=== PATIENT | female | born 1960 | race Caucasian/White ===

== ENCOUNTER 2023-01-23 17:51 | Outpatient (CLI) | payer MEDICARE | END 2023-01-23 17:52 | disposition critical access hospital (66) | LOC: EMS 17:51 | DX: R06.02 Shortness of breath (principal); R05.9 Cough, unspecified; R09.3 Abnormal sputum; R53.83 Other fatigue; R61 Generalized hyperhidrosis; Z99.81 Dependence on supplemental oxygen | CPT/HCPCS: A0425; A0427 ==

== ENCOUNTER 2023-01-23 18:07 | Inpatient (IN) | payer MEDICARE ==
[2023-01-23] MEDS ORDERED: IPRATROPIUM/ALBUTEROL 3 ML NEB INH STA (18:21)
--- NOTE | 2023-01-23 18:25 | ED Physician Documentation ---
History of Present Illness - Stated complaint Stated Complaint: SOA - Chief complaint Chief Complaint: Resp - Additonal information Additional information: 62-year-old female presents to the emergency department for evaluation of worsening shortness of air and cough that began about 4 to 5 days ago. She is traveling here from [place]. She states that at baseline, due to a history of pulmonary hypertension, she is on 2 L nasal cannula at rest. Typically uses 4 to 5 L at night with her CPAP machine. She states that she has had a productive cough and has been very wheezy. Her oxygen saturations have been lower than she is typically used to typically in the mid 80s over the last several days. Past medical history most significant for pulmonary hypertension, hypertension, fibromyalgia, chemotherapy-induced neuropathy, arthritis, prediabetes, sleep apnea, history of non-Hodgkin's lymphoma in remission for 14 years. Also had a history of a left kidney tumor status post partial nephrectomy. She does take sildenafil, diltiazem, amlodipine, furosemide daily. She denies missing any of her typical doses. Reports she had a fever 3 days ago. Up to 103. In route to the emergency department EMS gave 125 mg of Solu-Medrol IV as well as a DuoNeb. Review of Systems Constitutional: reports: Fever Respiratory: reports: Dyspnea, Wheezing. denies: Cough, Hemoptysis GI: reports: Reviewed and negative : reports: Reviewed and negative Skin: reports: Reviewed and negative Musculoskeletal: reports: Reviewed and negative Neurologic: reports: Reviewed and negative PD PAST MEDICAL HISTORY - Present Medications Home Medications: Ambulatory Orders Medication Instructions Recorded Confirmed Alprazolam [Xanax] 0.5 mg PO DAILY PRN 01/23/23 01/23/23 Atorvastatin Calcium 40 mg PO DAILY 01/23/23 01/23/23 Citalopram Hydrobromide 40 mg PO DAILY 01/23/23 01/23/23 [Citalopram HBr] DULoxetine [Cymbalta] 30 mg PO DAILY 01/23/23 01/23/[address] [Voltaren] 75 mg PO BIDWM 01/23/23 01/23/23 Furosemide [Lasix] 20 mg PO PRN PRN 01/23/23 01/23/23 Gabapentin [Neurontin] 600 mg PO UD 01/23/23 01/23/23 Sildenafil Citrate [Sildenafil] 20 mg PO TID 01/23/23 01/23/23 Valsartan/Hydrochlorothiazide 1 each PO DAILY 01/23/23 01/23/23 [Diovan Hct 320-25 mg Tablet] amLODIPine [Norvasc] 5 mg PO DAILY 01/23/23 01/23/23 dilTIAZem HCL [Diltiazem 24Hr ER 180 mg PO DAILY 01/23/23 01/23/23 (Xr)] tiZANidine [Zanaflex] 4 mg PO BID PRN 01/23/23 01/23/23 - Allergies Allergies/Adverse Reactions: Allergies Allergy/AdvReac Type Severity Reaction Status Date / Time promethazine [From Phenergan] Allergy Emesis Verified 01/23/23 18:14 PD ED PE NORMAL - General General: Alert and oriented X 3, Well developed/nourished (Obese) - Neck Neck: Supple, no meningeal sign - Cardiac Cardiac: RRR, Strong equal pulses. No: No murmur (3/6 systolic murmur) - Respiratory Respiratory: No: No respiratory distress (Mild tachypnea. Frequent productive cough. Reduced breath sounds globally though she does have some expiratory wheeze in the lower lung richter posteriorly. Saturating 88% on 4 L) - Abdomen Abdomen: Normal bowel sounds, Soft - Back Back: No CVA TTP, No spinal TTP - Derm Derm: Normal color, Warm and dry - Extremities Extremities: No deformity - Neuro Neuro: Alert and oriented X 3, lead radiologic technologist 2-12 intact Eye Opening: Spontaneous Motor: Obeys Commands Verbal: Oriented GCS Score: 15 Results - Vitals Vitals: Vital Signs - 24 hr 01/23/23 01/23/23 01/23/23 18:15 18:26 18:27 Temperature 36.5 C Heart Rate 86 82 95 Respiratory 16 26 H 21 Rate Blood Pressure 134/56 H 134/56 H O2 Saturation 88 L 91 L If not protocol 4 5 : Oxygen Flow, liters/minute 01/23/23 01/23/23 19:15 19:35 Temperature Heart Rate 76 81 Respiratory 24 30 H Rate Blood Pressure 123/49 L O2 Saturation 95 If not protocol 5 5 : Oxygen Flow, liters/minute Oxygen O2 Source Nasal cannula Oxygen Flow Rate 4 - EKG (time done) 1856 EKG releavant findings:: EKG personally interpreted by author of this note. Relevant findings are: Rate: Rate (enter#) (80) Rhythm: NSR [place]: Normal Intervals: Normal HI, Prolonged QT QRS: Normal Ischemia: Non specific changes Compare to prior EKG: Old EKG unavailable Computer interpretation: Agree with computer - Labs Labs: Laboratory Tests 01/23/23 01/23/23 01/23/23 18:28 18:28 18:28 WBC 8.0 RBC 3.50 L Hgb 11.0 L Hct 35.5 L MCV 101.4 H MCH 31.4 H MCHC 31.0 L RDW 13.2 Plt Count 90 L MPV 13.7 H Neut # (Auto) 5.0 Lymph # (Auto) 1.8 [place] # (Auto) 0.7 Eos # (Auto) 0.0 Baso # (Auto) 0.0 Absolute Nucleated RBC 0.02 Band Neuts % (Manual) Not Reportable Abnorm Lymph % (Manual) Not Reportable Nucleated RBC % 0.3 Neutrophils # (Manual) Not Reportable Lymphocytes # (Manual) Not Reportable Monocytes # (Manual) Not Reportable Eosinophils # (Manual) Not Reportable Basophils # (Manual) Not Reportable Differential Comment MANUAL=AUTO DIFF Manual Slide Review Indicated Platelet Estimate DECREASED (<130,000) Platelet Morphology NORMAL APPEARANCE RBC Morph Micro Appear NORMAL APPEARANCE PT 11.6 INR 1.0 Sodium 133 L Potassium 2.6 L Chloride 94 L Carbon Dioxide 24 Anion Gap 15.0 H BUN 54 H Creatinine 2.2 H Estimated GFR (MDRD) 23 L Glucose 181 H Calcium 8.4 L Total Bilirubin 0.9 AST 19 ALT 27 Alkaline Phosphatase 143 H B-Natriuretic Peptide Total Protein 7.3 Albumin 3.7 Globulin 3.6 Albumin/Globulin Ratio 1.0 Lipase 36 Nasal Adenovirus (PCR) Nasal B. parapertussis DNA (PCR) Nasal Coronavir 229E PCR Nasal Coronavir HKU1 PCR Nasal Coronavir NL63 PCR Nasal Coronavir OC43 PCR Nasal Enterovir/Rhinovir PCR Nasal Influenza B PCR Nasal Influenza A PCR Nasal Parainfluen 1 PCR Nasal Parainfluen 2 PCR Nasal Parainfluen 3 PCR Nasal Parainfluen 4 PCR Nasal RSV (PCR) Nasal B.pertussis DNA PCR Nasal C.pneumoniae (PCR) [place] Human Metapneumo PCR Nasal M.pneumoniae (PCR) Nasal SARS-CoV-2 (PCR) 01/23/23 01/23/23 18:28 19:05 WBC RBC Hgb Hct MCV MCH MCHC RDW Plt Count MPV Neut # (Auto) Lymph # (Auto) [place] # (Auto) Eos # (Auto) Baso # (Auto) Absolute Nucleated RBC Band Neuts % (Manual) Abnorm Lymph % (Manual) Nucleated RBC % Neutrophils # (Manual) Lymphocytes # (Manual) Monocytes # (Manual) Eosinophils # (Manual) Basophils # (Manual) Differential Comment Manual Slide Review Platelet Estimate Platelet Morphology RBC Morph Micro Appear PT INR Sodium Potassium Chloride Carbon Dioxide Anion Gap BUN Creatinine Estimated GFR (MDRD) Glucose Calcium Total Bilirubin AST ALT Alkaline Phosphatase B-Natriuretic Peptide 115 H Total Protein Albumin Globulin Albumin/Globulin Ratio Lipase Nasal Adenovirus (PCR) NOT DETECTED Nasal B. parapertussis DNA (PCR) NOT DETECTED Nasal Coronavir 229E PCR NOT DETECTED Nasal Coronavir HKU1 PCR NOT DETECTED Nasal Coronavir NL63 PCR NOT DETECTED Nasal Coronavir OC43 PCR NOT DETECTED Nasal Enterovir/Rhinovir PCR DETECTED A Nasal Influenza B PCR NOT DETECTED Nasal Influenza A PCR NOT DETECTED Nasal Parainfluen 1 PCR NOT DETECTED Nasal Parainfluen 2 PCR NOT DETECTED Nasal Parainfluen 3 PCR NOT DETECTED Nasal Parainfluen 4 PCR NOT DETECTED Nasal RSV (PCR) NOT DETECTED Nasal B.pertussis DNA PCR NOT DETECTED Nasal C.pneumoniae (PCR) NOT DETECTED [place] Human Metapneumo PCR NOT DETECTED Nasal M.pneumoniae (PCR) NOT DETECTED Nasal SARS-CoV-2 (PCR) NOT DETECTED - Rads (name of study) cxr Relevant Findings:: Final report received (Findings compatible with moderate to severe fluid overload CHF. Multifocal infection is difficult to exclude) PD Medical Decision Making - ED course Complexity details: reviewed results, re-evaluated patient, considered differential, d/w patient ED course: 62-year-old female presents emergency department for evaluation of 4 to 5 days increasing shortness of air. She does have a history of pulmonary hypertension. She also is on baseline 2 to 4 L oxygen at home. Typically she states her sats are 90-92 but over the last several days despite using oxygen at 4 L she has desaturated down into the mid 80s. She is also developed a productive cough and had a fever up to 103. Patient is traveling to [facility] from [place]. She also has a medical history that includes hypertension, history of left renal tumor status post partial nephrectomy and non-Hodgkin's lymphoma in remission for 14 years. On presentation to the emergency department the patient is tachypneic and constantly coughing. She is saturating 88 to 90% on 4 L. Initially she had very decreased airflow globally but did have diffuse crackles in the bases. She was administered a DuoNeb followed by an albuterol nebulizer and with this she had improved aeration and though she remained labored had improved breathing. I did obtain a chest x-ray and per my interpretation it shows diffused focal pulmonary infiltrates with volume overload. Initially suspecting some volume overload the patient was administered 40 mg of Lasix IV here in the ER. CBC shows no worrisome leukocytosis. She does have a mild anemia. Her electrolytes however are significantly deranged. She is hyponatremic, hypokalemic and has findings of acute kidney injury with an elevated BUN and creatinine of 2.2. I am able to look at the patient's labs obtained in October 2022 (on her phone) that shows normal renal function with a BUN of 17 and creatinine 0.7. Patient reports to me that she has had very little to eat or drink over the last several days due to the cough and shortness of air. I believe that her kidney injury is likely prerenal. Respiratory PCR has resulted positive for enterovirus/rhinovirus today. Blood cultures are pending. However clinically the patient has a hypoxic respiratory failure that I believe is due to a pneumonia. She was administered ceftriaxone and azithromycin here in the emergency department following the blood cultures. She will need to be admitted to the hospital for further management of acute kidney injury in the setting of pulmonary hypertension and pneumonia. I spoke with telehealth hospitalist Dr. Bruno who agrees to bring the patient in for further evaluation management and treatment. Departure - Departure Disposition: 66 [facility] DC/Xfer Clinical Impression: Acute kidney injury, History of pulmonary hypertension Pneumonia Qualifiers: Pneumonia type: due to unspecified organism Laterality: bilateral Lung location: lower lobe of lung Qualified Code(s): J18.9 - Pneumonia, unspecified organism
[2023-01-23] MEDS ORDERED: FUROSEMIDE 40 MG/4 ML VIAL IVP STA (18:27)
[2023-01-23 18:35] LABS: BASOPHILS % (AUTO) 0.4 %; HCT - HEMATOCRIT 35.5 % (37.0-47.0); LYMPHOCYTES # (AUTO) 1.8 10^3/uL (1.5-3.5); LYMPHOCYTES % (AUTO) 21.9 %; MEAN CORPUSCULAR HEMOGLOBIN 31.4 pg (27.0-31.0); MEAN CORPUSCULAR VOLUME 101.4 fL (81.0-99.0); MEAN PLATELET VOLUME 13.7 fL (7.9-10.8); MONOCYTES # (AUTO) 0.7 10^3/uL (0.0-1.0); MONOCYTES % (AUTO) 8.4 %; NEUTROPHILS % (AUTO) 62.3 %; NRBC ABSOLUTE COUNT (AUTO) 0.02 x10^3/uL; NUCLEATED RED BLOOD CELLS AUTO 0.3 /100WBC; PLT - PLATELET COUNT 90 10^3/uL (130-450); RED CELL DISTRIBUTION WIDTH 13.2 % (12.0-15.0)
[2023-01-23 18:40] LABS: SLIDE REVIEW? Indicated
[2023-01-23 18:41] LABS: PT - PROTHROMBIN TIME 11.6 secs (9.9-12.6)
[2023-01-23 18:48] LABS: ALBUMIN 3.7 g/dL (3.2-5.5); BILIRUBIN,TOTAL 0.9 mg/dL (0.2-1.0); CALCIUM 8.4 mg/dL (8.5-10.3); CREATININE 2.2 mg/dL (0.4-1.0); POTASSIUM 2.6 mmol/L (3.5-5.0); TOTAL PROTEIN 7.3 g/dL (6.7-8.2)
[2023-01-23 18:56] LABS: DIFFERENTIAL COMMENT MANUAL=AUTO DIFF; PLATELET ESTIMATE, MANUAL DECREASED (<130,000) (NORMAL); PLATELET MORPHOLOGY NORMAL APPEARANCE (NORMAL); RBC MORPHOLOGY (MULTIPLE) NORMAL APPEARANCE (NORMAL)
[2023-01-23] MEDS ORDERED: ALBUTEROL NEB 2.5 MG/3 ML INH STA (19:03)
[2023-01-23] MEDS ORDERED: cefTRIAXone 1 GM VIAL IVP STA (19:07)
[2023-01-23] MEDS ORDERED: AZITHROMYCIN INJ 500 MG in SODIUM CHLORIDE 0.9% 250 ML IV STA (19:08)
--- NOTE | 2023-01-23 19:38 | XRAY Report ---
PROCEDURE: Chest 1 View X-Ray INDICATIONS: Chest Pain TECHNIQUE: One view of the chest was acquired. COMPARISON: None. FINDINGS: Surgical changes and devices: None. Lungs and pleura: Interstitial opacities and patchy bibasilar opacities are present. No large pleura l effusion or pneumothorax identified Mediastinum: Cardiac silhouette is enlarged. Pulmonary vasculature appears congested. Bones and chest wall: No suspicious bony lesions. Overlying soft tissues appear unremarkable. IMPRESSION: Findings compatible with moderate-severe fluid overload/CHF. Multifocal infection is difficult to exc lude. Reviewed by: Champ Zhang MD on 01/23/2023 7:37 PM PDT Approved by: Champ Zhang MD on 01/23/2023 7:37 PM PDT Station ID: [id number]
--- NOTE | 2023-01-23 19:41 | HISTORY & PHYSICAL EXAMINATION ---
Chief Complaint - Chief Complaint Chief Complaint: Shortness of breath, cough History of Present Illness - Admitted From Admitted From:: ER - History Obtained From Records Reviewed: Yes History obtained from: Patient, staff, chart Exam Limitations: H&P was conducted via video remotely, using Access Cart. - History of Present Illness HPI Comment/Other: 62 yo F with PMH of Pulmonary HTN on Sildenafil and home O2 3L NC (recent dx), MANISHA on CPAP with 4L O2, HTN, Fibromyalgia, chemotherapy-induced neuropathy s/p NHL/in remission x 14 years, Prediabetes, Depression/Anxiety, Recent HZV outbreak, s/p TKR in 10/2022, and L kidney tumor S/P partial nephrectomy presented to the ER with c/o 5 day h/o Shortness of breath and cough. Pt traveled to [place] from [place] 10 days ago to help her daughter with her 3 yo grandson while her daughter's is deployed in reserves. Pt's grandson had URI symptoms last week; he was diagnosed with HMPV. Pt has been sleeping with her grandson. She began to have similar symptoms 5 days ago with cough, fatigue, mylagias. +Decreased PO intake. She then began to F/C with Tmax 103.3F. +sputum: green/brown. She then began to have wheezing and increased Shortness of breath. Her SpO2 are usually low 90s, and her SpO2 were running in the mid-80s. She tried her nebs. She increased her home O2 to 4L NC. She thought something was wrong with her portable O2 d/t SOB and called the level vial setter to trouble-shoot it, but could not find anything wrong. She increased her CPAP O2 to 5L. She then went to the Urgent Care clinic yesterday; Provider recommended that she go to the ER. Her symptoms worsened today, so she called EMS. She is supposed to return to [place] in about 4 days. EMS gave pt 125 mg of Solu-Medrol IV and DuoNebs. In the ER, SpO2 88-90% on 4L NC O2, Hgb 11, MCV 101.4, Plt 90, Na 133, K 2.6, Glc 181, BNP 115, BC pending, Resp panel pending. CXR not yet available for viewing; report not available: shows RLL infiltrate per ER Provider Pt was given Lasix 40mg IV, Rocephin/Azithro IV in the ER. History - Past Medical History Cardiovascular: reports: Hypertension Respiratory: reports: Other Psych: reports: Depression, Anxiety Musculoskeletal: reports: Other - Past Surgical History Ortho: reports: Knee replacement /HR CLERK: reports: section - Family & Social History Family History: Other family: Alive and Well (Daughter) Living arrangement: At home - Substance History Use: Uses substance without health or social issues: NONE Meds/Allgy - Home Medications Home Medications: Ambulatory Orders Medication Instructions Recorded Confirmed Alprazolam [Xanax] 0.5 mg PO DAILY PRN 01/23/23 01/23/23 Atorvastatin Calcium 40 mg PO DAILY 01/23/23 01/23/23 Citalopram Hydrobromide 40 mg PO DAILY 01/23/23 01/23/23 [Citalopram HBr] DULoxetine [Cymbalta] 30 mg PO DAILY 01/23/23 01/23/[address] [Voltaren] 75 mg PO BIDWM 01/23/23 01/23/23 Furosemide [Lasix] 20 mg PO PRN PRN 01/23/23 01/23/23 Gabapentin [Neurontin] 600 mg PO UD 01/23/23 01/23/23 Macitentan [Opsumit] 10 mg PO DAILY 01/23/23 01/23/23 Sildenafil Citrate [Sildenafil] 20 mg PO TID 01/23/23 01/23/23 Valsartan/Hydrochlorothiazide 1 each PO DAILY 01/23/23 01/23/23 [Diovan Hct 320-25 mg Tablet] amLODIPine [Norvasc] 5 mg PO DAILY 01/23/23 01/23/23 dilTIAZem HCL [Diltiazem 24Hr ER 180 mg PO DAILY 01/23/23 01/23/23 (Xr)] tiZANidine [Zanaflex] 4 mg PO BID PRN 01/23/23 01/23/23 - Allergies Allergies/Adverse Reactions: Allergies Allergy/AdvReac Type Severity Reaction Status Date / Time promethazine [From Phenergan] Allergy Emesis Verified 01/23/23 18:14 Review of Systems - All Other Systems All Other Systems: reports: Reviewed and negative Exam - Vital Signs Reviewed Vital Signs: Yes Vital Signs: Vital Signs x48h Temp Pulse Resp BP Pulse Ox O2 Flow Rate 04/18/23 19:15 76 24 5 01/23/23 18:27 95 21 5 01/23/23 18:26 82 26 H 134/56 H 91 L 4 01/23/23 18:15 36.5 C 86 16 134/56 H 88 L - Physical Exam General Appearance: positive: Mild distress Eyes Bilateral: positive: Normal inspection, PERRL, No scleral icterus Respiratory: positive: Other (Access cart stethoscope not working; per ER Provider: Decreased BS, +diffuse wheezing throughout) Cardiovascular: positive: Other ( Access cart stethoscope not working; per ER Provider: RRR, no murmurs) Abdomen: positive: Other (per ER Provider: non-distended, NT, Soft) Extremities: positive: No pedal edema Neurologic/Psychiatric: positive: Oriented x3, Other (NFD) Conclusion/Plan - Problem List (1) Pneumonia Conclusion/Plan: Acute on Chronic Respiratory Failure with Hypoxia Pneumonia Recent exposure to URI virus (HPMV) Pulmonary HTN on Sildenafil and home O2 3L NC (recent dx) MANISHA on CPAP with 4L O2 Cough Shortness of Breath Fever Wheezing -EMS gave pt 125 mg of Solu-Medrol IV and DuoNebs. -SpO2 88-90% on 4L NC O2, BNP 115, BC pending, Resp panel pending. -CXR not yet available for viewing; report not available: shows RLL infiltrate per ER Provider -Pt was given Lasix 40mg IV, Rocephin/Azithro IV in the ER. -continue O2 support -continue CPAP at night -continue Rocephin/Azithro IV for CAP -continue SoluMedrol, Duonebs -continue home medications: Sildenafil, Opsumit (pt has her home meds with her) Acute Renal Failure Decreased PO intake -most likely pre-renal -CR 2.2; pt has labs from 10/2022 with her; she had normal CR -IVF ordered -hold home medications: Valsartan/HCTZ, Diclofenac, Lasix -avoid nephrotoxins Hypokalemia -K 2.6 -supplement; monitor Thrombocytopenia -Plt 90; previous labs normal -possibly d/t viral infection Anemia, macrocytic -Hgb 11, MCV 101.4 -check B12/Folate HTN HLD -continue home medications: Diltiazem, Amlodipine (unclear why she is on 2 CCB; possibly d/t her Pulmonary HTN), statin --hold home medications: Valsartan/HCTZ, Lasix d/t ARF Fibromyalgia 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 Recent HZV outbreak -continue home medications: Duloxetine, Tizanidine, Gabapentin -hold home medications: Diclofenac d/t ARF Depression/Anxiety -continue home medications: Duloxetine, Xanax, Citalopram Prediabetes -Glc 181 -Glc will most likely run high while on steroids -accuchecks, SS Insulin, Hypoglycemic protocol -hold home PO medications: -check Hgba1c VTE Prophylaxis: SCDs only d/t Thrombocytopenia Code Status: Full Code ~Wendy Bruno MD Hospitalist Qualifiers: Pneumonia type: due to unspecified organism Laterality: bilateral Lung location: lower lobe of lung Qualified Code(s): J18.9 - Pneumonia, unspecified organism - Lab Results Fish Bones: 01/23/23 18:28 01/23/23 18:28
[2023-01-23 20:09] LABS: CORONAVIRUS 229E-RESP PCR NOT DETECTED; CORONAVIRUS HKU1-RESP PCR NOT DETECTED; CORONAVIRUS NL63-RESP PCR NOT DETECTED; CORONAVIRUS OC43-RESP PCR NOT DETECTED; HUMAN METAPNEUMOVIRUS NOT DETECTED; SARS-CoV-2 -RESP PCR PANEL NOT DETECTED
[2023-01-23 20:10] LABS: B. PARAPERTUSSIS- RESP PCR PAN NOT DETECTED; B. PERTUSSIS- RESP PCR PANEL NOT DETECTED; C. PNEUMONIAE- RESP PCR PANEL NOT DETECTED; INFLUENZA A- RESP PCR PANEL NOT DETECTED; INFLUENZA B - RESP PCR PANEL NOT DETECTED; M. PNEUMONIAE- RESP PCR PANEL NOT DETECTED; PARAINFLUENZA VIRUS 1 NOT DETECTED; PARAINFLUENZA VIRUS 2 NOT DETECTED; PARAINFLUENZA VIRUS 3 NOT DETECTED; PARAINFLUENZA VIRUS 4 NOT DETECTED; RHINOVIRUS/ENTEROVIRUS DETECTED; RSV- RESP PCR PANEL NOT DETECTED
[2023-01-23] MEDS ORDERED: tiZANidine 4 MG TABLET PO PRN (20:34)
[2023-01-23] MEDS ORDERED: ACETAMINOPHEN 325 MG TABLET PO PRN (20:35)
[2023-01-23] MEDS ORDERED: HEPARIN 5,000 UNIT/ML VIAL SUBQ SCH (21:00)
[2023-01-23] MEDS ORDERED: SODIUM CHLORIDE 0.9% 1,000 ML IV SCH (21:00)
[2023-01-23] MEDS: SODIUM CHLORIDE FLUSH 0.9% 10 ML SYRINGE IVP PRN (22:51)
[2023-01-23] MEDS ORDERED: IPRATROPIUM/ALBUTEROL 3 ML NEB INH PRN (23:18)
[2023-01-23] MEDS: POTASSIUM CHLOR 10 MEQ/100 ML 10 MEQ/100 ML BAG IV SCH (23:59)
[2023-01-24] MEDS: SODIUM CHLORIDE FLUSH 0.9% 10 ML SYRINGE IVP SCH ×3 (01:00→17:08)
[2023-01-24] MEDS: POTASSIUM CHLOR 10 MEQ/100 ML 10 MEQ/100 ML BAG IV SCH ×3 (01:21→04:05)
[2023-01-24] MEDS: guaiFENesin/DEXTROMETHORPHAN 10 ML UDC PO PRN ×2 (05:01→21:04)
[2023-01-24 05:31] LABS: FOLATE 13.83 ng/mL (5.90 - >24.8)
[2023-01-24] MEDS ORDERED: IPRATROPIUM/ALBUTEROL 3 ML NEB INH PRN (08:02)
[2023-01-24 08:18] LABS: CREATININE 1.7 mg/dL (0.4-1.0); MAGNESIUM 2.4 mg/dL (1.7-2.8); POTASSIUM 3.8 mmol/L (3.5-5.0)
[2023-01-24 08:31] LABS: BASOPHILS % (AUTO) 0.5 %; HCT - HEMATOCRIT 32.3 % (37.0-47.0); HGB - HEMOGLOBIN 10.1 g/dL (12.0-16.0); LYMPHOCYTES # (AUTO) 0.6 10^3/uL (1.5-3.5); LYMPHOCYTES % (AUTO) 10.4 %; MEAN CORPUSCULAR HEMOGLOBIN 31.2 pg (27.0-31.0); MEAN CORPUSCULAR HGB CONC 31.3 g/dL (32.0-36.0); MEAN CORPUSCULAR VOLUME 99.7 fL (81.0-99.0); MEAN PLATELET VOLUME 12.8 fL (7.9-10.8); MONOCYTES # (AUTO) 0.4 10^3/uL (0.0-1.0); MONOCYTES % (AUTO) 6.4 %; NEUTROPHILS # (AUTO) 4.1 10^3/uL (1.5-6.6); NEUTROPHILS % (AUTO) 68.4 %; NRBC ABSOLUTE COUNT (AUTO) 0.02 x10^3/uL; NUCLEATED RED BLOOD CELLS AUTO 0.3 /100WBC; PLT - PLATELET COUNT 92 10^3/uL (130-450); RED BLOOD COUNT 3.24 10^6/uL (4.20-5.40); RED CELL DISTRIBUTION WIDTH 13.1 % (12.0-15.0); SLIDE REVIEW? Indicated; WHITE BLOOD COUNT 5.9 x10^3/uL (4.8-10.8)
--- NOTE | 2023-01-24 08:53 | XRAY Report ---
PROCEDURE: Chest 1 View X-Ray INDICATIONS: F/U pneumonia vs CHF TECHNIQUE: One view of the chest was acquired. COMPARISON: 01/23/2023 FINDINGS: Surgical changes and devices: None. Lungs and pleura: Similar pulmonary vascular congestion and bibasilar opacities, right lung worse th an left. Interstitial opacities also present as before. No large pleural effusion or pneumothorax. Mediastinum: Cardiac silhouette is enlarged. Bones and chest wall: No suspicious bony lesions. Overlying soft tissues appear unremarkable. IMPRESSION: No significant interval change. Similar findings more suggestive of fluid overload/CHF but underlying infection is difficult to exclude. Reviewed by: Champ Zhang MD on 01/24/2023 8:52 AM PDT Approved by: Champ Zhang MD on 01/24/2023 8:52 AM PDT Station ID: [id number]
[2023-01-24] MEDS: CITALOPRAM HYDROBROMIDE 20 MG TABLET PO SCH (08:55)
[2023-01-24] MEDS: INSULIN LISPRO 300 UNIT/3 ML PEN SUBQ SCH ×4 (08:55→20:55)
[2023-01-24] MEDS: amLODIPine 5 MG TABLET PO SCH (08:56)
[2023-01-24] MEDS: POTASSIUM CHLORIDE 20 MEQ TABLET PO SCH (08:56)
[2023-01-24] MEDS: GABAPENTIN 300 MG CAPSULE PO SCH ×3 (08:58→20:54)
[2023-01-24] MEDS: methylPREDNISolone SUCCINATE 40 MG/ML VIAL IVP SCH ×3 (08:58→21:00)
[2023-01-24] MEDS: MACITENTAN 10 MG PO SCH (08:59)
[2023-01-24] MEDS ORDERED: ATORVASTATIN 40 MG TABLET PO SCH (09:00)
[2023-01-24] MEDS ORDERED: diltiaZEM CD 180 MG CAPSULE PO SCH (09:00)
[2023-01-24] MEDS ORDERED: amLODIPine 5 MG TABLET PO SCH (09:00)
[2023-01-24] MEDS ORDERED: DULoxetine 30 MG CAPSULE PO SCH (09:00)
[2023-01-24] MEDS ORDERED: methylPREDNISolone SUCCINATE 40 MG/ML VIAL IVP SCH (09:00)
[2023-01-24 09:25] LABS: PLATELET ESTIMATE, MANUAL DECREASED (<130,000) (NORMAL); PLATELET MORPHOLOGY NORMAL APPEARANCE (NORMAL); RBC MORPHOLOGY (MULTIPLE) NORMAL APPEARANCE (NORMAL); WBC MORPHOLOGY (MULTIPLE) NORMAL APPEARANCE (NORMAL)
--- NOTE | 2023-01-24 11:41 | PHARMACY PROGRESS NOTE ---
- Best Possible Medication History Admit Date and Time: 01/23/232035 Medication History completed: Yes Secondary Source(s): Pharmacy records, Insurance records Med rec completed by admitting provider As the person ultimately responsible for medication therapy, providers are able to order a medication from an existing home medication list in [facility] via the "Reconcile Routine" prior to Confirmation of that medication by office support. Such practice is discouraged except when the physician, in their clinical judgment, deems that a medical need exists for a medication without regard to previous use.
[2023-01-24 11:54] LABS: ESTIMATED AVERAGE GLUCOSE 128 mg/dL (70-100); HEMOGLOBIN A1c% 6.1 % (4.27-6.07)
[2023-01-24] MEDS: diltiaZEM CD 180 MG CAPSULE PO SCH (12:01)
--- NOTE | 2023-01-24 13:30 | PROVIDER PROGRESS NOTE ---
Assessment/Plan - Problem List (1) Acute on chronic respiratory failure with hypoxemia Assessment/Plan: The cause appears to be pneumonia on top of previously needing supplemental oxygen due to pulm hypertension Plan: Will cont O2, target saturation 90% or above. Will treat the underlying cause 2) Community Acquired Pneumonia Plan: Will obtain sputum for gram stain and cx Continue with empiric IV ceftriaxone and IV Zithromax Continue with guaifenesin for pulmonary toilet Continue with supplemental O2 3) Rhinovirus infection Plan: Continue with respiratory/droplet isolation Will give meds for sx of cough and phlegm 4) Pulmonary HTN She is on Sildenafil and another med and on home O2 at 2-4L NC and that this is a recent Dx Plan: We will continue with both of her medications Continue with supplemental O2 Will order DuoNebs for her mild wheezing that is heard Continue with IV steroids 3 times daily 5) MANISHA on CPAP She reports that she has 4L O2 bled in Plan: Continue with her home BiPAP use 6) Acute Renal Failure Her adm creat was 2.2; pt has labs from 10/2022 with her, when she had normal creat This is most likely pre-renal azotemia given the Hx of poor po intake Plan: Cont IVF ordered Hold home medications: Valsartan/HCTZ, Diclofenac, Lasix Avoid nephrotoxins 7) Hypokalemia Her adm K was 2.6, prob due to loop diuretic use Plan: Replace K and monitor BMP daily 8) Thrombocytopenia All labs were reviewed. 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 Her Hgb 11, MCV 101.4 Plan: Will check B12/Folate and replace if low 10) HTN Her home meds were Diltiazem, Amlodipine (unclear why she is on 2 CCB; most likley d/t her Pulmonary HTN) Plan: We will order her usual blood pressure meds, when the list has been reconciled by pharmacy, but hold home medications: Valsartan/HCTZ, Lasix d/t ARF 11) Prediabetes We check Hgba1c and it came back 6.1 Her Glc will most likely run high while on steroid Plan: Cont with accuchecks, SS Insulin, Hypoglycemic protocol and diabetic diet Will hold home PO medications 12) Morbid obesity BMI 45-49.9 This makes her care overall more difficult 13) Fibromyalgia 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 Plan: Continue home medications: Duloxetine, Tizanidine, Gabapentin Hold home medications: Diclofenac d/t ARF 14) Anxiety & Depression Plan: Continue home medications: Duloxetine, Xanax, Citalopram - Current Meds Current Meds: Current Medications Generic Name Dose Route Start Last Admin Trade Name Freq PRN Reason Stop Dose Admin Amlodipine Besylate 5 mg 01/24/23 09:00 01/24/23 08:56 Amlodipine 5 Mg Tablet PO 5 mg DAILY LUZ ELENA Administration Citalopram Hydrobromide 40 mg 01/24/23 09:00 01/24/23 08:55 Citalopram Hydrobromide 20 Mg Tablet PO 40 mg DAILY LUZ ELENA Administration Diltiazem HCl 180 mg 01/24/23 12:00 01/24/23 12:01 Diltiazem Cd 180 Mg Capsule PO 180 mg 1200 LUZ ELENA Administration Gabapentin 600 mg 01/24/23 09:00 01/24/23 08:58 Gabapentin 300 Mg Capsule PO 600 mg TID LUZ ELENA Administration Guaifenesin 10 ml 01/24/23 02:49 01/24/23 05:01 Guaifenesin/Dextromethorphan 10 Ml Udc PO 10 ml Q6HR PRN Administration Cough Insulin Human Lispro 0 unit 01/24/23 08:00 01/24/23 12:01 Insulin Lispro 300 Unit/3 Ml Pen SUBQ 4 unit 0800,1200,1600,2100 LUZ ELENA Administration Protocol Methylprednisolone 80 mg 01/24/23 08:03 01/24/23 08:58 Methylprednisolone Succinate 40 Mg/Ml Vial IVP 80 mg TID LUZ ELENA Administration Macitentan [ 1 each 01/24/23 09:00 01/24/23 08:59 Opsumit] 10 Mg PO 1 each Tablet DAILY LUZ ELENA Administration Potassium Chloride 40 meq 01/24/23 08:00 01/24/23 08:56 Potassium Chloride 20 Meq Tablet PO 40 meq DAILYWM LUZ ELENA Administration Sodium Chloride 10 ml 01/23/23 20:35 01/23/23 22:51 Sodium Chloride Flush 0.9% 10 Ml Syringe IVP 10 ml PRN PRN Administration NEEDED PER PROVIDER ORDERS Sodium Chloride 10 ml 01/24/23 01:00 01/24/23 08:59 Sodium Chloride Flush 0.9% 10 Ml Syringe IVP 10 ml 0100,0900,1700 LUZ ELENA Administration - Lab Result Fish Bone Diagrams: 01/27/23 04:33 01/27/23 04:33 - Additional Planning My Orders: My Active Orders 01/24/23 07:55 Telemetry- [RC] Q4HR 01/24/23 08:02 Nebulizer/MDI Tx. [RC] QID Resp Teach Nebulizer/MDI [RC] .ONCE 01/24/23 08:03 methylPREDNISolone SUCCINATE [SOLU-Medrol (40MG VIAL)] 80 mg IVP TID 01/24/23 09:00 amLODIPine [Norvasc] 5 mg PO DAILY 01/24/23 09:10 CUL, RESPIRATORY [RM] Stat 01/24/23 12:00 diltiaZEM CD [Cardizem Cd] 180 mg PO 1200 01/24/23 21:00 Atorvastatin [Lipitor] 40 mg PO QPM 01/25/23 05:00 BMP - BASIC METABOLIC PANEL [CHEM] DAILYLAB BNP - B-NATRIURETIC PEPTIDE [IAI] DAILYLAB CBC - COMP BLD CT W/AUTO DIFF [HEME] DAILYLAB MAGNESIUM [CHEM] DAILYLAB 01/26/23 05:00 BMP - BASIC METABOLIC PANEL [CHEM] DAILYLAB CBC - COMP BLD CT W/AUTO DIFF [HEME] DAILYLAB 01/27/23 05:00 BMP - BASIC METABOLIC PANEL [CHEM] DAILYLAB CBC - COMP BLD CT W/AUTO DIFF [HEME] DAILYLAB 01/28/23 05:00 BMP - BASIC METABOLIC PANEL [CHEM] DAILYLAB CBC - COMP BLD CT W/AUTO DIFF [HEME] DAILYLAB Subjective - Subjective Patient Reports: Shortness of Breath (She is sitting bolt upright, speaking with pauses in between sentence to take breaths, voice is weak and hoarse.) Objective Vital Signs: Vital Signs - 24 hr 01/23/23 01/23/23 01/23/23 18:15 18:26 18:27 Temperature 36.5 C Heart Rate 86 82 95 Heart Rate [ Brachial] Respiratory 16 26 H 21 Rate Blood Pressure 134/56 H 134/56 H Blood Pressure [Right Brachial artery] O2 Saturation 88 L 91 L If not protocol 4 5 : Oxygen Flow, liters/minute 01/23/23 01/23/23 01/23/23 19:15 19:35 20:35 Temperature Heart Rate 76 81 81 Heart Rate [ Brachial] Respiratory 24 30 H 23 Rate Blood Pressure 123/49 L 125/55 L Blood Pressure [Right Brachial artery] O2 Saturation 95 91 L If not protocol 5 5 : Oxygen Flow, liters/minute 01/23/23 01/23/23 01/23/23 21:42 22:32 23:00 Temperature 37.2 C Heart Rate Heart Rate [ 82 Brachial] Respiratory 22 Rate Blood Pressure Blood Pressure 122/50 L [Right Brachial artery] O2 Saturation 92 If not protocol 6 6 6 : Oxygen Flow, liters/minute 01/23/23 01/24/23 01/24/23 23:43 04:31 07:27 Temperature 36.7 C 36.8 C 36.5 C Heart Rate Heart Rate [ 65 71 73 Brachial] Respiratory 20 20 20 Rate Blood Pressure Blood Pressure 97/45 L 105/43 L 103/49 L [Right Brachial artery] O2 Saturation 93 96 94 If not protocol 15 14 14 : Oxygen Flow, liters/minute 01/24/23 01/24/23 08:00 11:11 Temperature 36.5 C Heart Rate Heart Rate [ 69 Brachial] Respiratory 18 Rate Blood Pressure Blood Pressure 106/47 L [Right Brachial artery] O2 Saturation 91 L If not protocol 4 10 : Oxygen Flow, liters/minute Oxygen O2 Source CPAP Oxygen Flow Rate 4 I&O (Last 24 Hrs): Intake and Output Totals x24h 01/22/23 01/23/23 01/24/23 23:59 23:59 23:59 Intake Total 250 1738.25 Output Total 1600 1150 Balance -1350 588.25 General: Alert, Oriented x3, Moderate distress (RR rate elevated, taking breaths mid-sentence), Other (Obese WF, appears younger than her age) HEENT: EOMI, Other (wearing her nasal pillows CPAP machine w/ supp O2 bled in) Neck: Supple, Other (cannot eval JVP due to morbid obesity) Neuro: Alert, Non Focal Cardiovascular: Regular rate, No murmurs (distant heart sounds due to obesity, large breasts) Respiratory: Wheezes, Rhonchi (R posterior base), Other (Poor air mvm in all lung richter) Abdomen: Soft, Other (Obese with a pannus) Extremities: No clubbing, No edema, No tenderness/swelling - Results Results: Laboratory Results WBC 5.9 x10^3/uL (4.8-10.8) 01/24/23 04:35 RBC 3.24 10^6/uL (4.20-5.40) L 01/24/23 04:35 Hgb 10.1 g/dL (12.0-16.0) L 01/24/23 04:35 Hct 32.3 % (37.0-47.0) L 01/24/23 04:35 MCV 99.7 fL (81.0-99.0) H 01/24/23 04:35 MCH 31.2 pg (27.0-31.0) H 01/24/23 04:35 MCHC 31.3 g/dL (32.0-36.0) L 01/24/23 04:35 RDW 13.1 % (12.0-15.0) 01/24/23 04:35 Plt Count 92 10^3/uL (130-450) L 01/24/23 04:35 MPV 12.8 fL (7.9-10.8) H 01/24/23 04:35 Neut # (Auto) 4.1 10^3/uL (1.5-6.6) 01/24/23 04:35 Lymph # (Auto) 0.6 10^3/uL (1.5-3.5) L 01/24/23 04:35 [place] # (Auto) 0.4 10^3/uL (0.0-1.0) 01/24/23 04:35 Eos # (Auto) 0.0 10^3/uL (0.0-0.7) 01/24/23 04:35 Baso # (Auto) 0.0 10^3/uL (0.0-0.1) 01/24/23 04:35 Absolute Nucleated RBC 0.02 x10^3/uL 01/24/23 04:35 Band Neuts % (Manual) Not Reportable 01/23/23 18:28 Abnorm Lymph % (Manual) Not Reportable 01/23/23 18:28 Nucleated RBC % 0.3 /100WBC 01/24/23 04:35 Neutrophils # (Manual) Not Reportable 01/23/23 18:28 Lymphocytes # (Manual) Not Reportable 01/23/23 18:28 Monocytes # (Manual) Not Reportable 01/23/23 18:28 Eosinophils # (Manual) Not Reportable 01/23/23 18:28 Basophils # (Manual) Not Reportable 01/23/23 18:28 Differential Comment MANUAL=AUTO DIFF 01/23/23 18:28 Manual Slide Review Indicated 01/24/23 04:35 WBC Morphology NORMAL APPEARANCE (NORMAL) 01/24/23 04:35 Platelet Estimate DECREASED (<130,000) (NORMAL) 01/24/23 04:35 Platelet Morphology NORMAL APPEARANCE (NORMAL) 01/24/23 04:35 RBC Morph Micro Appear NORMAL APPEARANCE (NORMAL) 01/24/23 04:35 PT 11.6 secs (9.9-12.6) 01/23/23 18:28 INR 1.0 (0.8-1.2) 01/23/23 18:28 Sodium 135 mmol/L (135-145) 01/24/23 04:35 Potassium 3.8 mmol/L (3.5-5.0) 01/24/23 04:35 Chloride 95 mmol/L (101-111) L 01/24/23 04:35 Carbon Dioxide 23 mmol/L (21-32) 01/24/23 04:35 Anion Gap 17.0 (6-13) H 01/24/23 04:35 BUN 56 mg/dL (6-20) H 01/24/23 04:35 Creatinine 1.7 mg/dL (0.4-1.0) H 01/24/23 04:35 Estimated GFR (MDRD) 31 (>89) L 01/24/23 04:35 Glucose 201 mg/dL (70-100) H 01/24/23 04:35 POC Whole Bld Glucose 278 mg/dL (70 - 100) H 01/24/23 10:59 Estimat Average Glucose 128 mg/dL (70-100) H 01/24/23 04:35 Hemoglobin A1c % 6.1 % (4.27-6.07) H 01/24/23 04:35 Calcium 8.0 mg/dL (8.5-10.3) L 01/24/23 04:35 Magnesium 2.4 mg/dL (1.7-2.8) 01/24/23 04:35 Total Bilirubin 0.9 mg/dL (0.2-1.0) 01/23/23 18:28 AST 19 IU/L (10-42) 01/23/23 18:28 ALT 27 IU/L (10-60) 01/23/23 18:28 Alkaline Phosphatase 143 IU/L (42-121) H 01/23/23 18:28 B-Natriuretic Peptide 159 pg/mL (5-100) H 01/24/23 04:35 Total Protein 7.3 g/dL (6.7-8.2) 01/23/23 18: Albumin 3.7 g/dL (3.2-5.5) 01/23/23 18: Globulin 3.6 g/dL (2.1-4.2) 01/23/23 18:28 Albumin/Globulin Ratio 1.0 (1.0-2.2) 01/23/23 18:28 Lipase 36 U/L (22-51) 01/23/23 18:28 Vitamin B12 456 pg/mL (180-914) 01/24/23 04:35 Folate 13.83 ng/mL (5.90 - >24.8) 01/24/23 04:35 Nasal Adenovirus (PCR) NOT DETECTED 01/23/23 19:05 Nasal B. parapertussis DNA (PCR) NOT DETECTED 01/23/23 19:05 Nasal Coronavir 229E PCR NOT DETECTED 01/23/23 19:05 Nasal Coronavir HKU1 PCR NOT DETECTED 01/23/23 19:05 Nasal Coronavir NL63 PCR NOT DETECTED 01/23/23 19:05 Nasal Coronavir OC43 PCR NOT DETECTED 01/23/23 19:05 Nasal Enterovir/Rhinovir PCR DETECTED A 01/23/23 19:05 Nasal Influenza B PCR NOT DETECTED 01/23/23 19:05 Nasal Influenza A PCR NOT DETECTED 01/23/23 19:05 Nasal Parainfluen 1 PCR NOT DETECTED 01/23/23 19:05 Nasal Parainfluen 2 PCR NOT DETECTED 01/23/23 19:05 Nasal Parainfluen 3 PCR NOT DETECTED 01/23/23 19:05 Nasal Parainfluen 4 PCR NOT DETECTED 01/23/23 19:05 Nasal RSV (PCR) NOT DETECTED 01/23/23 19:05 Nasal B.pertussis DNA PCR NOT DETECTED 01/23/23 19:05 Nasal C.pneumoniae (PCR) NOT DETECTED 01/23/23 19:05 [place] Human Metapneumo PCR NOT DETECTED 01/23/23 19:05 Nasal M.pneumoniae (PCR) NOT DETECTED 01/23/23 19:05 Nasal SARS-CoV-2 (PCR) NOT DETECTED 01/23/23 19:05
[2023-01-24] MEDS: SILDENAFIL CITRATE 20 MG PO SCH ×2 (14:04→21:00)
[2023-01-24] MEDS: cefTRIAXone 2 GM in SODIUM CHLORIDE 0.9% MINIBAG 100 ML IV SCH (18:53)
[2023-01-24] MEDS: AZITHROMYCIN INJ 500 MG in SODIUM CHLORIDE 0.9% 250 ML IV SCH (20:10)
[2023-01-24] MEDS: DULoxetine 30 MG CAPSULE PO SCH (20:54)
[2023-01-24] MEDS: ATORVASTATIN 40 MG TABLET PO SCH (20:55)
[2023-01-25] MEDS: SODIUM CHLORIDE FLUSH 0.9% 10 ML SYRINGE IVP SCH ×4 (02:59→21:29)
[2023-01-25] MEDS: guaiFENesin/DEXTROMETHORPHAN 10 ML UDC PO PRN (03:18)
[2023-01-25 05:04] LABS: BASOPHILS % (AUTO) 0.5 %; HCT - HEMATOCRIT 32.7 % (37.0-47.0); LYMPHOCYTES % (AUTO) 13.3 %; MEAN CORPUSCULAR HEMOGLOBIN 30.8 pg (27.0-31.0); MEAN CORPUSCULAR HGB CONC 30.6 g/dL (32.0-36.0); MEAN CORPUSCULAR VOLUME 100.6 fL (81.0-99.0); MONOCYTES % (AUTO) 7.2 %; NEUTROPHILS % (AUTO) 63.9 %; PLT - PLATELET COUNT 99 10^3/uL (130-450); RED BLOOD COUNT 3.25 10^6/uL (4.20-5.40); RED CELL DISTRIBUTION WIDTH 13.2 % (12.0-15.0); WHITE BLOOD COUNT 4.1 x10^3/uL (4.8-10.8)
[2023-01-25 05:20] LABS: ABNORMAL LYMPHS % (MANUAL) 0 %; CALCIUM 8.7 mg/dL (8.5-10.3); CREATININE 0.9 mg/dL (0.4-1.0); MAGNESIUM 2.6 mg/dL (1.7-2.8); POTASSIUM 3.6 mmol/L (3.5-5.0)
[2023-01-25 05:32] LABS: BAND NEUTROPHILS % (MANUAL) 4 %; LYMPHOCYTES # (MANUAL) 0.4 10^3/uL (1.5-3.5); LYMPHOCYTES % (MANUAL) 10 %; METAMYELOCYTES % (MANUAL) 1 %; MONOCYTES # (MANUAL) 0.1 10^3/uL (0.0-1.0); MYELOCYTES % (MANUAL) 2 %; NEUTROPHILS # (MANUAL) 3.4 10^3/uL (1.5-6.6); RBC MORPHOLOGY (MULTIPLE) NORMAL APPEARANCE (NORMAL)
[2023-01-25 05:33] LABS: DIFFERENTIAL COMMENT MANUAL DIFFERENTIAL; PLATELET ESTIMATE, MANUAL DECREASED (<130,000) (NORMAL); PLATELET MORPHOLOGY NORMAL APPEARANCE (NORMAL); WBC MORPHOLOGY (MULTIPLE) NORMAL APPEARANCE (NORMAL)
[2023-01-25] MEDS: methylPREDNISolone SUCCINATE 40 MG/ML VIAL IVP SCH ×3 (06:39→21:28)
[2023-01-25] MEDS: SILDENAFIL CITRATE 20 MG PO SCH ×3 (06:39→21:28)
[2023-01-25] MEDS: GABAPENTIN 300 MG CAPSULE PO SCH ×3 (06:39→21:28)
[2023-01-25] MEDS: INSULIN LISPRO 300 UNIT/3 ML PEN SUBQ SCH ×4 (08:01→20:29)
[2023-01-25] MEDS: MACITENTAN 10 MG PO SCH (08:02)
[2023-01-25] MEDS: amLODIPine 5 MG TABLET PO SCH (08:02)
[2023-01-25] MEDS: CITALOPRAM HYDROBROMIDE 20 MG TABLET PO SCH (08:02)
[2023-01-25] MEDS: POTASSIUM CHLORIDE 20 MEQ TABLET PO SCH (08:02)
[2023-01-25] MEDS: diltiaZEM CD 180 MG CAPSULE PO SCH (11:39)
--- NOTE | 2023-01-25 13:52 | PROVIDER PROGRESS NOTE ---
Assessment/Plan - Problem List (1) Acute respiratory failure with hypoxia Assessment/Plan: The cause appears to be pneumonia on top of previously needing supplemental oxygen due to pulm hypertension Plan: Continue with supplemental O2, target saturations are 90% and above Continue to treat the underlying pneumonia (2) Community Acquired Pneumonia Her sputum culture is growing 3 bacteria: gram-positive cocci, gram pos bacilli and gram-negative bacilli growing Plan: Continue with empiric IV ceftriaxone and IV Zithromax. Await sputum culture and blood culture results to tailor antibiotic We will change her Robitussin-DM to Robitussin-AC for cough suppression and also begin Mucinex oral 600 twice daily for better pulmonary toilet Continue with supplemental O2 I updated the daughter by phone when I was making rounds and talking with the patient today. I asked if the daughter's house (where the patient is staying) is sanitary and the daughter admitted that the house is old, was built in the 1940s and also had water leaks and that some of the carpets are still stained. I recommend more cleanly conditions (3) Rhinovirus infection Plan: Continue with respiratory/droplet isolation (4) Pulmonary HTN She was already on Sildenafil and another med and on home O2 3L. She is still about to see a [employer] Operator (in her home town in [place]) for completing W/U, she told me. Plan: We will continue with both of her medications Continue with supplemental O2 Cont DuoNebs for her mild wheezing that is heard Continue with IV steroids 3 times daily (5) MANISHA on CPAP Her CPAP bleeds in 4L O2 normally, at baseline Plan: Continue with her home BiPAP use (6) Acute Renal Failure This was most likely pre-renal. All labs were reviewed. She presented with a creat of 2.2; pt has labs from 10/2022 with her which showed she had normal creat. Yest creat was 1.7 and today creat has improved to 0.9. But BUN still elevated at 51. Plan: Cont IVF and will decrease rate and stop ivf probably tomorrow. Cont to hold home medications: Valsartan/HCTZ, Diclofenac, Lasix Avoid nephrotoxins (7) Hypokalemia Adm K was 2.6 prob due to loop diuretic use Plan: Cont to supplement; monitor (8) Thrombocytopenia Adm Plt were 90 and today 99; previous labs normal Possibly d/t viral infection Plan: White antiplatelet agents Follow CBC daily (9) Anemia, macrocytic Adm Hgb was 11, MCV 101.4 We checked B12/Folate (10) HTN Her home medications were Diltiazem, Amlodipine, CArdizem (she is possibly on 2 Ca-channel blockers d/t her Pulmonary HTN), Valsartan/HCTZ and Lasix. We are not giveing home medications Valsartan/HCTZ, Lasix d/t ARF Plan: We will add back her usual blood pressure meds, when BP necessitates and when creat normalizes. 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 Plan: Continue home medications: Duloxetine, Tizanidine, Gabapentin Cont to hold home medications: Diclofenac d/t ARF (14) Depression/Anxiety Plan: Continue home medications: Duloxetine, Xanax, Citalopram - Current Meds Current Meds: Current Medications Generic Name Dose Route Start Last Admin Trade Name Freq PRN Reason Stop Dose Admin Acetaminophen 650 mg 01/23/23 20:35 01/24/23 21:01 Acetaminophen 325 Mg Tablet PO 650 mg Q4HR PRN Administration Pain 1 to 4, or Fever Amlodipine Besylate 5 mg 01/24/23 09:00 01/25/23 08:02 Amlodipine 5 Mg Tablet PO 5 mg DAILY LUZ ELENA Administration Atorvastatin Calcium 40 mg 01/24/23 21:00 01/24/23 20:55 Atorvastatin 40 Mg Tablet PO 40 mg QPM LUZ ELENA Administration Citalopram Hydrobromide 40 mg 01/24/23 09:00 01/25/23 08:02 Citalopram Hydrobromide 20 Mg Tablet PO 40 mg DAILY LUZ ELENA Administration Diltiazem HCl 180 mg 01/24/23 12:00 01/25/23 11:39 Diltiazem Cd 180 Mg Capsule PO 180 mg 1200 LUZ ELENA Administration Duloxetine HCl 30 mg 01/24/23 09:41 01/24/23 20:54 Duloxetine 30 Mg Capsule PO 30 mg QPM LUZ ELENA Administration Gabapentin 600 mg 01/24/23 09:00 01/25/23 06:39 Gabapentin 300 Mg Capsule PO 600 mg TID LUZ ELENA Administration Ceftriaxone Sodium 2 gm/ 100 mls @ 200 mls/hr 01/24/23 19:00 01/24/23 20:11 Sodium Chloride IV Infused Q24H LUZ ELENA Infusion Azithromycin 500 mg/ Sodium 250 mls @ 250 mls/hr 01/24/23 19:30 01/24/23 21:10 Chloride IV Infused Q24H LUZ ELENA Infusion Methylprednisolone 80 mg 01/24/23 08:03 01/25/23 06:39 Methylprednisolone Succinate 40 Mg/Ml Vial IVP 80 mg TID LUZ ELENA Administration Sildenafil Citrate 1 each 01/24/23 14:00 01/25/23 06:39 [Sildenafil] 20 Mg PO 1 each Tablet TID LUZ ELENA Administration Macitentan [ 1 each 01/24/23 09:00 01/25/23 08:02 Opsumit] 10 Mg PO 1 each Tablet DAILY LUZ ELENA Administration Potassium Chloride 40 meq 01/24/23 08:00 01/25/23 08:02 Potassium Chloride 20 Meq Tablet PO 40 meq DAILYWM LUZ ELENA Administration Sodium Chloride 10 ml 01/23/23 20:35 01/23/23 22:51 Sodium Chloride Flush 0.9% 10 Ml Syringe IVP 10 ml PRN PRN Administration NEEDED PER PROVIDER ORDERS Sodium Chloride 10 ml 01/24/23 01:00 01/25/23 08:04 Sodium Chloride Flush 0.9% 10 Ml Syringe IVP 10 ml 0100,0900,1700 LUZ ELENA Administration - Lab Result Fish Bone Diagrams: 01/25/23 04:50 01/25/23 04:50 - Additional Planning My Orders: My Active Orders 01/24/23 21:00 Atorvastatin [Lipitor] 40 mg PO QPM 01/25/23 13:29 guaiFENesin/CODEINE [Robitussin AC] 5 ml PO Q6HR PRN 01/25/23 17:00 Insulin Lispro [Humalog Kwikpen U-100] 2 - 10 unit SUBQ 0800,1200,1700,2100 01/25/23 21:00 guaiFENesin [Mucinex] 600 mg PO BID 01/26/23 05:00 BMP - BASIC METABOLIC PANEL [CHEM] DAILYLAB CBC - COMP BLD CT W/AUTO DIFF [HEME] DAILYLAB 01/26/23 09:00 polyethylene glycoL 3350 [Miralax] 17 gm PO DAILY 01/27/23 05:00 BMP - BASIC METABOLIC PANEL [CHEM] DAILYLAB CBC - COMP BLD CT W/AUTO DIFF [HEME] DAILYLAB 01/28/23 05:00 BMP - BASIC METABOLIC PANEL [CHEM] DAILYLAB CBC - COMP BLD CT W/AUTO DIFF [HEME] DAILYLAB Subjective - Subjective Patient Reports: Cough (Irritating recurrent cough with cough spasms. Robitussin-DM is not helping), Shortness of Breath Objective Vital Signs: Vital Signs - 24 hr 01/24/23 01/24/23 01/24/23 16:10 17:06 17:43 Temperature 37.0 C Heart Rate [ 77 78 Brachial] Respiratory 20 22 20 Rate Blood Pressure 116/47 L [Left Brachial artery] Blood Pressure 124/48 L [Right Brachial artery] O2 Saturation 90 L 94 93 If not protocol 10 10 10 : Oxygen Flow, liters/minute 01/24/23 01/24/23 01/24/23 19:29 20:03 23:44 Temperature 36.6 C 36.9 C Heart Rate [ 85 78 Brachial] Respiratory 22 18 Rate Blood Pressure 128/49 L [Left Brachial artery] Blood Pressure 137/45 H [Right Brachial artery] O2 Saturation 94 94 If not protocol 10 10 10 : Oxygen Flow, liters/minute 01/25/23 01/25/23 01/25/23 05:00 06:48 07:34 Temperature 36.9 C 36.9 C Heart Rate [ 72 77 Brachial] Respiratory 18 18 Rate Blood Pressure [Left Brachial artery] Blood Pressure 131/54 H 101/57 L [Right Brachial artery] O2 Saturation 96 94 90 L If not protocol 10 9 9 : Oxygen Flow, liters/minute 01/25/23 01/25/23 08:15 11:21 Temperature 36.7 C Heart Rate [ 78 Brachial] Respiratory 20 18 Rate Blood Pressure [Left Brachial artery] Blood Pressure 140/64 H [Right Brachial artery] O2 Saturation 92 96 If not protocol 10 10 : Oxygen Flow, liters/minute Oxygen O2 Source CPAP Oxygen Flow Rate 4 I&O (Last 24 Hrs): Intake and Output Totals x24h 04/18/23 04/19/23 04/20/23 23:59 23:59 23:59 Intake Total 250 2208.25 930 Output Total 1600 2100 1850 Balance -1350 108.25 -920 General: Alert, Oriented x3, Other (Gets wery flushed during a coughing spasm) HEENT: Mucous membr. moist/pink, Other (wearing her BIPAP, napping, awoke to voice) Neck: Supple, Other (Cannot evaluate JVP due to morbid obesity) Neuro: Alert, Non Focal Cardiovascular: Regular rate, Other (Distant heart sounds due to obesity and large breasts) Respiratory: No respiratory distress (No SOB at rest, wearing her nasal pillow BiPAP and on supplemental O2. No longer has to take breaths at [place] when speaking), Wheezes (in apeces) Abdomen: Soft, Other (obese with pannus) Extremities: No clubbing, No tenderness/swelling, Other (Trace edema) - Results Results: Laboratory Results WBC 4.1 x10^3/uL (4.8-10.8) L 01/25/23 04:50 RBC 3.25 10^6/uL (4.20-5.40) L 01/25/23 04:50 Hgb 10.0 g/dL (12.0-16.0) L 01/25/23 04:50 Hct 32.7 % (37.0-47.0) L 01/25/23 04:50 MCV 100.6 fL (81.0-99.0) H 01/25/23 04:50 MCH 30.8 pg (27.0-31.0) 01/25/23 04:50 MCHC 30.6 g/dL (32.0-36.0) L 01/25/23 04:50 RDW 13.2 % (12.0-15.0) 01/25/23 04:50 Plt Count 99 10^3/uL (130-450) L 01/25/23 04:50 MPV 13.0 fL (7.9-10.8) H 01/25/23 04:50 Neut # (Auto) Not Reportable 01/25/23 04:50 Lymph # (Auto) Not Reportable 01/25/23 04:50 [place] # (Auto) Not Reportable 01/25/23 04:50 Eos # (Auto) Not Reportable 01/25/23 04:50 Baso # (Auto) Not Reportable 01/25/23 04:50 Absolute Nucleated RBC Not Reportable 01/25/23 04:50 Total Counted 100 01/25/23 04:50 Band Neuts % (Manual) 4 % (0-10) 01/25/23 04:50 Abnorm Lymph % (Manual) 0 % 01/25/23 04:50 Metamyelocytes % 1 % (-0) H 01/25/23 04:50 Myelocytes % 2 % (-0) H 01/25/23 04:50 Nucleated RBC % Not Reportable 01/25/23 04:50 Neutrophils # (Manual) 3.4 10^3/uL (1.5-6.6) 01/25/23 04:50 Lymphocytes # (Manual) 0.4 10^3/uL (1.5-3.5) L 01/25/23 04:50 Monocytes # (Manual) 0.1 10^3/uL (0.0-1.0) 01/25/23 04:50 Eosinophils # (Manual) 0.0 10^3/uL (0-0.7) 01/25/23 04:50 Basophils # (Manual) 0.0 10^3/uL (0-0.1) 01/25/23 04:50 Differential Comment MANUAL DIFFERENTIAL 01/25/23 04:50 Manual Slide Review Indicated 01/24/23 04:35 WBC Morphology NORMAL APPEARANCE (NORMAL) 01/25/23 04:50 Platelet Estimate DECREASED (<130,000) (NORMAL) 01/25/23 04:50 Platelet Morphology NORMAL APPEARANCE (NORMAL) 01/25/23 04:50 RBC Morph Micro Appear NORMAL APPEARANCE (NORMAL) 01/25/23 04:50 PT 11.6 secs (9.9-12.6) 01/23/23 18:28 INR 1.0 (0.8-1.2) 01/23/23 18:28 Sodium 141 mmol/L (135-145) 01/25/23 04:50 Potassium 3.6 mmol/L (3.5-5.0) 01/25/23 04:50 Chloride 101 mmol/L (101-111) 01/25/23 04:50 Carbon Dioxide 29 mmol/L (21-32) 01/25/23 04:50 Anion Gap 11.0 (6-13) 01/25/23 04:50 BUN 51 mg/dL (6-20) H 01/25/23 04:50 Creatinine 0.9 mg/dL (0.4-1.0) 01/25/23 04:50 Estimated GFR (MDRD) 64 (>89) L 01/25/23 04:50 Glucose 230 mg/dL (70-100) H 01/25/23 04:50 POC Whole Bld Glucose 313 mg/dL (70 - 100) H 01/25/23 11:15 Estimat Average Glucose 128 mg/dL (70-100) H 01/24/23 04:35 Hemoglobin A1c % 6.1 % (4.27-6.07) H 01/24/23 04:35 Calcium 8.7 mg/dL (8.5-10.3) 01/25/23 04:50 Magnesium 2.6 mg/dL (1.7-2.8) 01/25/23 04:50 Total Bilirubin 0.9 mg/dL (0.2-1.0) 01/23/23 18:28 AST 19 IU/L (10-42) 01/23/23 18:28 ALT 27 IU/L (10-60) 01/23/23 18:28 Alkaline Phosphatase 143 IU/L (42-121) H 01/23/23 18:28 B-Natriuretic Peptide 183 pg/mL (5-100) H 01/25/23 04:50 Total Protein 7.3 g/dL (6.7-8.2) 01/23/23 18:28 Albumin 3.7 g/dL (3.2-5.5) 01/23/23 18:28 Globulin 3.6 g/dL (2.1-4.2) 01/23/23 18:28 Albumin/Globulin Ratio 1.0 (1.0-2.2) 01/23/23 18:28 Lipase 36 U/L (22-51) 01/23/23 18:28 Vitamin B12 456 pg/mL (180-914) 01/24/23 04:35 Folate 13.83 ng/mL (5.90 - >24.8) 01/24/23 04:35 Nasal Adenovirus (PCR) NOT DETECTED 01/23/23 19:05 Nasal B. parapertussis DNA (PCR) NOT DETECTED 01/23/23 19:05 Nasal Coronavir 229E PCR NOT DETECTED 01/23/23 19:05 Nasal Coronavir HKU1 PCR NOT DETECTED 01/23/23 19:05 Nasal Coronavir NL63 PCR NOT DETECTED 01/23/23 19:05 Nasal Coronavir OC43 PCR NOT DETECTED 01/23/23 19:05 Nasal Enterovir/Rhinovir PCR DETECTED A 01/23/23 19:05 Nasal Influenza B PCR NOT DETECTED 01/23/23 19:05 Nasal Influenza A PCR NOT DETECTED 01/23/23 19:05 Nasal Parainfluen 1 PCR NOT DETECTED 01/23/23 19:05 Nasal Parainfluen 2 PCR NOT DETECTED 01/23/23 19:05 Nasal Parainfluen 3 PCR NOT DETECTED 01/23/23 19:05 Nasal Parainfluen 4 PCR NOT DETECTED 01/23/23 19:05 Nasal RSV (PCR) NOT DETECTED 01/23/23 19:05 Nasal B.pertussis DNA PCR NOT DETECTED 01/23/23 19:05 Nasal C.pneumoniae (PCR) NOT DETECTED 01/23/23 19:05 [place] Human Metapneumo PCR NOT DETECTED 01/23/23 19:05 Nasal M.pneumoniae (PCR) NOT DETECTED 01/23/23 19:05 Nasal SARS-CoV-2 (PCR) NOT DETECTED 01/23/23 19:05
[2023-01-25] MEDS: SODIUM CHLORIDE FLUSH 0.9% 10 ML SYRINGE IVP PRN (14:00)
[2023-01-25] MEDS: polyethylene glycoL 3350 17 GM PACKET PO SCH (16:41)
[2023-01-25] MEDS: cefTRIAXone 2 GM in SODIUM CHLORIDE 0.9% MINIBAG 100 ML IV SCH (19:20)
[2023-01-25] MEDS: AZITHROMYCIN INJ 500 MG in SODIUM CHLORIDE 0.9% 250 ML IV SCH (20:03)
[2023-01-25] MEDS: guaiFENesin 600 MG TABLET PO SCH (20:29)
[2023-01-25] MEDS: ATORVASTATIN 40 MG TABLET PO SCH (20:29)
[2023-01-25] MEDS: DULoxetine 30 MG CAPSULE PO SCH (20:29)
[2023-01-26] MEDS: guaiFENesin/CODEINE 5 ML UDC PO PRN ×2 (03:28→18:46)
[2023-01-26] MEDS: ALPRAZolam 0.25 MG TABLET PO PRN ×2 (03:31→23:51)
[2023-01-26] MEDS: methylPREDNISolone SUCCINATE 40 MG/ML VIAL IVP SCH ×3 (05:24→21:24)
[2023-01-26] MEDS: SILDENAFIL CITRATE 20 MG PO SCH ×3 (05:25→21:25)
[2023-01-26] MEDS: GABAPENTIN 300 MG CAPSULE PO SCH ×3 (05:25→21:24)
[2023-01-26 05:37] LABS: BASOPHILS % (AUTO) 0.7 %; HCT - HEMATOCRIT 32.2 % (37.0-47.0); HGB - HEMOGLOBIN 9.9 g/dL (12.0-16.0); LYMPHOCYTES % (AUTO) 14.8 %; MEAN CORPUSCULAR HEMOGLOBIN 31.2 pg (27.0-31.0); MEAN CORPUSCULAR HGB CONC 30.7 g/dL (32.0-36.0); MEAN CORPUSCULAR VOLUME 101.6 fL (81.0-99.0); MEAN PLATELET VOLUME 12.6 fL (7.9-10.8); MONOCYTES % (AUTO) 7.1 %; PLT - PLATELET COUNT 109 10^3/uL (130-450); RED BLOOD COUNT 3.17 10^6/uL (4.20-5.40); RED CELL DISTRIBUTION WIDTH 13.4 % (12.0-15.0); WHITE BLOOD COUNT 4.4 x10^3/uL (4.8-10.8)
[2023-01-26 05:46] LABS: CREATININE 0.7 mg/dL (0.4-1.0); POTASSIUM 4.4 mmol/L (3.5-5.0)
[2023-01-26 05:49] LABS: ABNORMAL LYMPHS % (MANUAL) 0 %
[2023-01-26 06:19] LABS: BAND NEUTROPHILS % (MANUAL) 6 %; DIFFERENTIAL COMMENT MANUAL DIFFERENTIAL; LYMPHOCYTES # (MANUAL) 1.2 10^3/uL (1.5-3.5); LYMPHOCYTES % (MANUAL) 27 %; METAMYELOCYTES % (MANUAL) 2 %; MONOCYTES # (MANUAL) 0.4 10^3/uL (0.0-1.0); MYELOCYTES % (MANUAL) 1 %; NEUTROPHILS # (MANUAL) 2.6 10^3/uL (1.5-6.6); PLATELET ESTIMATE, MANUAL DECREASED (<130,000) (NORMAL); RBC MORPHOLOGY (MULTIPLE) NORMAL APPEARANCE (NORMAL)
[2023-01-26] MEDS: INSULIN LISPRO 300 UNIT/3 ML PEN SUBQ SCH ×4 (08:10→21:26)
[2023-01-26] MEDS: SENNA 8.6 MG TABLET PO SCH (08:46)
[2023-01-26] MEDS: DOCUSATE SODIUM 250 MG CAPSULE PO SCH (08:46)
[2023-01-26] MEDS: POTASSIUM CHLORIDE 20 MEQ TABLET PO SCH (08:47)
[2023-01-26] MEDS: CITALOPRAM HYDROBROMIDE 20 MG TABLET PO SCH (08:47)
[2023-01-26] MEDS: guaiFENesin 600 MG TABLET PO SCH ×2 (08:47→21:24)
[2023-01-26] MEDS: amLODIPine 5 MG TABLET PO SCH (08:47)
[2023-01-26] MEDS: MACITENTAN 10 MG PO SCH (08:49)
[2023-01-26] MEDS: polyethylene glycoL 3350 17 GM PACKET PO SCH (08:49)
[2023-01-26] MEDS: SODIUM CHLORIDE FLUSH 0.9% 10 ML SYRINGE IVP SCH ×3 (08:50→23:52)
[2023-01-26] MEDS: INSULIN GLARGINE-YFGN 300 UNIT/3 ML PEN SUBQ SCH (11:34)
[2023-01-26] MEDS: diltiaZEM CD 180 MG CAPSULE PO SCH (11:36)
[2023-01-26] MEDS: SODIUM CHLORIDE FLUSH 0.9% 10 ML SYRINGE IVP PRN (13:53)
[2023-01-26] MEDS: CHOLECALCIFEROL 25 MCG TABLET PO SCH (16:56)
--- NOTE | 2023-01-26 18:36 | PROVIDER PROGRESS NOTE ---
Assessment/Plan - Current Meds Current Meds: Current Medications Generic Name Dose Route Start Last Admin Trade Name Barq PRN Reason Stop Dose Admin Acetaminophen 650 mg 01/23/23 20:35 01/24/23 21:01 Acetaminophen 325 Mg Tablet PO 650 mg Q4HR PRN Administration Pain 1 to 4, or Fever Alprazolam 0.5 mg 01/23/23 20:34 01/26/23 23:51 Alprazolam 0.25 Mg Tablet PO 0.5 mg DAILY PRN Administration Anxiety Amlodipine Besylate 5 mg 01/24/23 09:00 01/27/23 08:43 Amlodipine 5 Mg Tablet PO 5 mg DAILY LUZ ELENA Administration Atorvastatin Calcium 40 mg 01/24/23 21:00 01/26/23 21:24 Atorvastatin 40 Mg Tablet PO 40 mg QPM LUZ ELENA Administration Cholecalciferol 50 mcg 01/26/23 17:00 01/27/23 08:40 Cholecalciferol 25 Mcg Tablet PO 50 mcg DAILY LUZ ELENA Administration Citalopram Hydrobromide 40 mg 01/24/23 09:00 01/27/23 08:40 Citalopram Hydrobromide 20 Mg Tablet PO 40 mg DAILY LUZ ELENA Administration Diltiazem HCl 180 mg 01/24/23 12:00 01/26/23 11:36 Diltiazem Cd 180 Mg Capsule PO 180 mg 1200 LUZ ELENA Administration Docusate Sodium 250 - 500 mg 01/26/23 09:00 01/27/23 08:42 Docusate Sodium 250 Mg Capsule PO Not Given DAILY LUZ ELENA Duloxetine HCl 30 mg 01/24/23 09:41 01/26/23 21:24 Duloxetine 30 Mg Capsule PO 30 mg QPM LUZ ELENA Administration Gabapentin 600 mg 01/24/23 09:00 01/27/23 05:35 Gabapentin 300 Mg Capsule PO 600 mg TID LUZ ELENA Administration Guaifenesin 600 mg 01/25/23 21:00 01/27/23 08:41 Guaifenesin 600 Mg Tablet PO 600 mg BID LUZ ELENA Administration Guaifenesin/Codeine Phosphate 5 ml 01/25/23 13:29 01/27/23 01:18 Guaifenesin/Codeine 5 Ml Udc PO 5 ml Q6HR PRN Administration Cough Ceftriaxone Sodium 2 gm/ 100 mls @ 200 mls/hr 01/24/23 19:00 01/26/23 19:37 Sodium Chloride IV 01/27/23 19:59 Infused Q24H LUZ ELENA Infusion Insulin Glargine-yfgn 8 unit 01/26/23 10:13 01/27/23 08:46 Insulin Glargine-Yfgn 300 Unit/3 Ml Pen SUBQ 8 unit DAILY LUZ ELENA Administration Insulin Human Lispro 2 - 10 unit 01/25/23 17:00 01/27/23 08:02 Insulin Lispro 300 Unit/3 Ml Pen SUBQ 4 unit 0800,1200,1700,2100 LUZ ELENA Administration Protocol Methylprednisolone 40 mg 01/26/23 14:00 01/27/23 05:37 Methylprednisolone Succinate 40 Mg/Ml Vial IVP 40 mg TID LUZ ELENA Administration Sildenafil Citrate 1 each 01/24/23 14:00 01/27/23 05:36 [Sildenafil] 20 Mg PO 1 each Tablet TID LUZ ELENA Administration Macitentan [ 1 each 01/24/23 09:00 01/27/23 08:45 Opsumit] 10 Mg PO 1 each Tablet DAILY LUZ ELENA Administration Polyethylene Glycol 17 gm 01/25/23 16:50 01/27/23 08:42 Polyethylene Glycol 3350 17 Gm Packet PO Not Given DAILY LUZ ELENA Potassium Chloride 40 meq 01/24/23 08:00 01/27/23 08:41 Potassium Chloride 20 Meq Tablet PO 40 meq DAILYWM LUZ ELENA Administration Senna 8.6 - 17.2 mg 01/26/23 09:00 01/27/23 08:43 Senna 8.6 Mg Tablet PO Not Given DAILY LUZ ELENA Sodium Chloride 10 ml 01/23/23 20:35 01/26/23 13:53 Sodium Chloride Flush 0.9% 10 Ml Syringe IVP 10 ml PRN PRN Administration NEEDED PER PROVIDER ORDERS Sodium Chloride 10 ml 01/24/23 01:00 01/27/23 08:47 Sodium Chloride Flush 0.9% 10 Ml Syringe IVP 10 ml 0100,0900,1700 LUZ ELENA Administration - Lab Result Fish Bone Diagrams: 01/27/23 04:33 01/27/23 04:33 <Mago Larson - Last Filed: 01/27/23 10:48> - Problem List (1) Acute on chronic respiratory failure with hypoxia Assessment/Plan: The cause appears to be pneumonia on top of previously needing supplemental oxygen due to pulm hypertension Plan: Continue with supplemental O2, target saturations are 90% and above Continue to treat the underlying pneumonia On the day of Dch, I plan to have her lugo an oximetry walk test to see if her home O2 settings need to be changed. (2) Community Acquired Pneumonia Her sputum culture was growing 3 bacteria: gram-positive cocci, gram pos bacilli and gram-negative bacilli>> the final report said Normal Oral Paty. Bld cx are neg to date She has completed an empiric course of IV Zithromax. Plan: Continue with empiric IV ceftriaxone for a 5-day course Await any blood culture results to tailor antibiotic Cont with Robitussin-AC for cough suppression and also Mucinex oral 600 twice daily forvpulmonary toilet, both have helped her expectorate Continue with supplemental O2 I updated the daughter today. I recommended more cleanly conditions in her home, but did report that the 3 growing sputum bacteria were just Normal Oral Paty. (3) Rhinovirus infection Plan: Continue with respiratory/droplet isolation (4) Pulmonary HTN She was already on Sildenafil and another med and on home O2 at 2-4L. She is still about to see a Business Functional Analyst (in her home town in [place]) for completing the Wwork up for connective tissue disease, she told me. Plan: We will continue with both of her medications Continue with supplemental O2 Cont DuoNebs for her mild wheezing that is heard Continue with IV steroids 3 times daily, will start to taper down the dose (5) MANISHA on CPAP Her CPAP bleeds in 4L O2 normally, at baseline Plan: Continue with her home BiPAP use (6) Acute Renal Failure This was most likely pre-renal. All labs were reviewed. She presented with a creat of 2.2; pt has labs from 10/2022 with her which showed she had normal creat. Yest creat was 1.7 and today creat has improved to 0.9. But BUN still elevated at 51. Plan: Cont IVF and will decrease rate and stop ivf probably tomorrow. Cont to hold home medications: Valsartan/HCTZ, Diclofenac, Lasix Avoid nephrotoxins (7) Hypokalemia Adm K was 2.6 prob due to loop diuretic use. K has been replaced. Plan: Cont to supplement; monitor (8) Thrombocytopenia All labs were reviewed. Adm Plt were 90 and is improving daily Possibly d/t viral infection Plan: Avoid antiplatelet agents Follow CBC daily (9) Anemia, macrocytic Adm Hgb was 11, MCV 101.4. We checked B12/Folate and they were normal. (10) HTN Her home medications were Diltiazem, Amlodipine, CArdizem (she is possibly on 2 Ca-channel blockers d/t her Pulmonary HTN), Valsartan/HCTZ and Lasix. We are not giving home medications Valsartan/HCTZ, Lasix d/t ARF Plan: We will add back her usual blood pressure meds, when BP necessitates and when creat normalizes. 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 Plan: Continue home medications: Duloxetine, Tizanidine, Gabapentin Cont to hold home medications: Diclofenac d/t ARF (14) Depression/Anxiety Plan: Continue home medications: Duloxetine, Xanax, Citalopram - Current Meds Current Meds: Current Medications Generic Name Dose Route Start Last Admin Trade Name Freq PRN Reason Stop Dose Admin Acetaminophen 650 mg 01/23/23 20:35 01/24/23 21:01 Acetaminophen 325 Mg Tablet PO 650 mg Q4HR PRN Administration Pain 1 to 4, or Fever Alprazolam 0.5 mg 01/23/23 20:34 01/26/23 03:31 Alprazolam 0.25 Mg Tablet PO 0.5 mg DAILY PRN Administration Anxiety Amlodipine Besylate 5 mg 01/24/23 09:00 01/26/23 08:47 Amlodipine 5 Mg Tablet PO 5 mg DAILY LUZ ELENA Administration Atorvastatin Calcium 40 mg 01/24/23 21:00 01/25/23 20:29 Atorvastatin 40 Mg Tablet PO 40 mg QPM LUZ ELENA Administration Cholecalciferol 50 mcg 01/26/23 17:00 01/26/23 16:56 Cholecalciferol 25 Mcg Tablet PO 50 mcg DAILY LUZ ELENA Administration Citalopram Hydrobromide 40 mg 01/24/23 09:00 01/26/23 08:47 Citalopram Hydrobromide 20 Mg Tablet PO 40 mg DAILY LUZ ELENA Administration Diltiazem HCl 180 mg 01/24/23 12:00 01/26/23 11:36 Diltiazem Cd 180 Mg Capsule PO 180 mg 1200 LUZ ELENA Administration Docusate Sodium 250 - 500 mg 01/26/23 09:00 01/26/23 08:46 Docusate Sodium 250 Mg Capsule PO 250 mg DAILY LUZ ELENA Administration Duloxetine HCl 30 mg 01/24/23 09:41 01/25/23 20:29 Duloxetine 30 Mg Capsule PO 30 mg QPM LUZ ELENA Administration Gabapentin 600 mg 01/24/23 09:00 01/26/23 13:53 Gabapentin 300 Mg Capsule PO 600 mg TID LUZ ELENA Administration Guaifenesin 600 mg 01/25/23 21:00 01/26/23 08:47 Guaifenesin 600 Mg Tablet PO 600 mg BID LUZ ELENA Administration Guaifenesin/Codeine Phosphate 5 ml 01/25/23 13:29 01/26/23 03:28 Guaifenesin/Codeine 5 Ml Udc PO 5 ml Q6HR PRN Administration Cough Ceftriaxone Sodium 2 gm/ 100 mls @ 200 mls/hr 01/24/23 19:00 01/25/23 19:50 Sodium Chloride IV Infused Q24H LUZ ELENA Infusion Insulin Glargine-yfgn 8 unit 01/26/23 10:13 01/26/23 11:34 Insulin Glargine-Yfgn 300 Unit/3 Ml Pen SUBQ 8 unit DAILY LUZ ELENA Administration Insulin Human Lispro 2 - 10 unit 01/25/23 17:00 01/26/23 16:57 Insulin Lispro 300 Unit/3 Ml Pen SUBQ 4 unit 0800,1200,1700,2100 LUZ ELENA Administration Protocol Methylprednisolone 40 mg 01/26/23 14:00 01/26/23 13:53 Methylprednisolone Succinate 40 Mg/Ml Vial IVP 40 mg TID LUZ ELENA Administration Sildenafil Citrate 1 each 01/24/23 14:00 01/26/23 13:54 [Sildenafil] 20 Mg PO 1 each Tablet TID LUZ ELENA Administration Macitentan [ 1 each 01/24/23 09:00 01/26/23 08:49 Opsumit] 10 Mg PO 1 each Tablet DAILY LUZ ELENA Administration Polyethylene Glycol 17 gm 01/25/23 16:50 01/26/23 08:49 Polyethylene Glycol 3350 17 Gm Packet PO 17 gm DAILY LUZ ELENA Administration Potassium Chloride 40 meq 01/24/23 08:00 01/26/23 08:47 Potassium Chloride 20 Meq Tablet PO 40 meq DAILYWM LUZ ELENA Administration Senna 8.6 - 17.2 mg 01/26/23 09:00 01/26/23 08:46 Senna 8.6 Mg Tablet PO 8.6 mg DAILY LUZ ELENA Administration Sodium Chloride 10 ml 01/23/23 20:35 01/26/23 13:53 Sodium Chloride Flush 0.9% 10 Ml Syringe IVP 10 ml PRN PRN Administration NEEDED PER PROVIDER ORDERS Sodium Chloride 10 ml 01/24/23 01:00 01/26/23 16:59 Sodium Chloride Flush 0.9% 10 Ml Syringe IVP 10 ml 0100,0900,1700 LUZ ELENA Administration - Lab Result Fish Bone Diagrams: 01/27/23 04:33 01/27/23 04:33 - Additional Planning My Orders: My Active Orders 01/25/23 21:00 guaiFENesin [Mucinex] 600 mg PO BID 01/26/23 Evaluate and Treat OT [OT] Routine Evaluate and Treat PT [PT] Routine 01/26/23 09:00 Docusate Sodium 250Mg Capsule [Colace 250Mg Capsule] 250 - 500 mg PO DAILY Senna [Senokot] 8.6 - 17.2 mg PO DAILY 01/26/23 10:13 Insulin Glargine-Yfgn [Semglee] 8 unit SUBQ DAILY 01/26/23 14:00 methylPREDNISolone SUCCINATE [SOLU-Medrol (40MG VIAL)] 40 mg IVP TID 01/26/23 Dinner Cardiac Diet [DIET] 01/26/23 16:29 IS [Incentive Spirometry - RT] [RC] TID 01/26/23 17:00 Cholecalciferol [Vitamin D3] 50 mcg PO DAILY 01/27/23 05:00 BMP - BASIC METABOLIC PANEL [CHEM] DAILYLAB CBC - COMP BLD CT W/AUTO DIFF [HEME] DAILYLAB 01/28/23 05:00 BMP - BASIC METABOLIC PANEL [CHEM] DAILYLAB CBC - COMP BLD CT W/AUTO DIFF [HEME] DAILYLAB <Erika Jalloh - Last Filed: 01/30/23 10:54> Subjective - Subjective Patient Reports: Feeling Better, Shortness of Breath <Mago Larson - Last Filed: 01/27/23 10:48> Objective Vital Signs: Vital Signs - 24 hr 01/26/23 01/26/23 01/26/23 11:00 11:39 12:07 Temperature 36.6 C Heart Rate [ 82 82 Brachial] Respiratory 18 Rate Blood Pressure 132/50 H 132/50 H [Right Brachial artery] O2 Saturation 88 L O2 Saturation [ 81 L With Activity] O2 Saturation [ 90 L Without Activity] If not protocol 4 : Oxygen Flow, liters/minute 01/26/23 01/26/23 01/26/23 15:30 18:42 19:10 Temperature 36.5 C Heart Rate [ 79 94 Brachial] Respiratory 18 22 Rate Blood Pressure 140/64 H 145/61 H [Right Brachial artery] O2 Saturation 98 90 L O2 Saturation [ With Activity] O2 Saturation [ Without Activity] If not protocol 10 4 10 : Oxygen Flow, liters/minute 01/26/23 01/26/23 01/27/23 21:00 23:52 04:47 Temperature 37.0 C 36.8 C 36.6 C Heart Rate [ 81 85 80 Brachial] Respiratory 18 18 18 Rate Blood Pressure 128/58 L 145/64 H 141/59 H [Right Brachial artery] O2 Saturation 98 94 93 O2 Saturation [ With Activity] O2 Saturation [ Without Activity] If not protocol 10 10 10 : Oxygen Flow, liters/minute 01/27/23 01/27/23 07:28 07:33 Temperature 36.9 C Heart Rate [ 74 Brachial] Respiratory 20 Rate Blood Pressure 131/67 H [Right Brachial artery] O2 Saturation 98 O2 Saturation [ With Activity] O2 Saturation [ Without Activity] If not protocol 10 4 : Oxygen Flow, liters/minute Oxygen O2 Source [With Activity] Nasal cannula O2 Source [Without Activity] Nasal cannula O2 Source CPAP Oxygen Flow Rate 4 I&O (Last 24 Hrs): Intake and Output Totals x24h 01/25/23 01/26/23 01/27/23 23:59 23:59 23:59 Intake Total 2440 1310 240 Output Total 3050 1700 850 Balance -610 -390 -610 General: Alert, Oriented x3, No acute distress Neuro: Alert Cardiovascular: Regular rate Respiratory: Rhonchi Skin: No rashes - Results Results: Laboratory Results WBC 6.1 x10^3/uL (4.8-10.8) 01/27/23 04:33 RBC 3.27 10^6/uL (4.20-5.40) L 01/27/23 04:33 Hgb 10.2 g/dL (12.0-16.0) L 01/27/23 04:33 Hct 33.7 % (37.0-47.0) L 01/27/23 04:33 MCV 103.1 fL (81.0-99.0) H 01/27/23 04:33 MCH 31.2 pg (27.0-31.0) H 01/27/23 04:33 MCHC 30.3 g/dL (32.0-36.0) L 01/27/23 04:33 RDW 13.2 % (12.0-15.0) 01/27/23 04:33 Plt Count 125 10^3/uL (130-450) L 01/27/23 04:33 MPV 12.6 fL (7.9-10.8) H 01/27/23 04:33 Neut # (Auto) Not Reportable 01/27/23 04:33 Lymph # (Auto) Not Reportable 01/27/23 04:33 [place] # (Auto) Not Reportable 01/27/23 04:33 Eos # (Auto) Not Reportable 01/27/23 04:33 Baso # (Auto) Not Reportable 01/27/23 04:33 Absolute Nucleated RBC Not Reportable 01/27/23 04:33 Total Counted 100 01/27/23 04:33 Band Neuts % (Manual) 5 % (0-10) 01/27/23 04:33 Abnorm Lymph % (Manual) 0 % 01/27/23 04:33 Metamyelocytes % 3 % (-0) H 01/27/23 04:33 Myelocytes % 2 % (-0) H 01/27/23 04:33 Nucleated RBC % Not Reportable 01/27/23 04:33 Neutrophils # (Manual) 4.1 10^3/uL (1.5-6.6) 01/27/23 04:33 Lymphocytes # (Manual) 1.2 10^3/uL (1.5-3.5) L 01/27/23 04:33 Monocytes # (Manual) 0.5 10^3/uL (0.0-1.0) 01/27/23 04:33 Eosinophils # (Manual) 0.0 10^3/uL (0-0.7) 01/27/23 04:33 Basophils # (Manual) 0.0 10^3/uL (0-0.1) 01/27/23 04:33 Differential Comment MANUAL DIFFERENTIAL 01/27/23 04:33 Manual Slide Review Indicated 01/24/23 04:35 WBC Morphology NORMAL APPEARANCE (NORMAL) 01/25/23 04:50 Platelet Estimate DECREASED (<130,000) (NORMAL) 01/27/23 04:33 Platelet Morphology NORMAL APPEARANCE (NORMAL) 01/25/23 04:50 RBC Morph Micro Appear NORMAL APPEARANCE (NORMAL) 01/27/23 04:33 PT 11.6 secs (9.9-12.6) 01/23/23 18:28 INR 1.0 (0.8-1.2) 01/23/23 18:28 Sodium 139 mmol/L (135-145) 01/27/23 04:33 Potassium 4.9 mmol/L (3.5-5.0) 01/27/23 04:33 Chloride 103 mmol/L (101-111) 01/27/23 04:33 Carbon Dioxide 27 mmol/L (21-32) 01/27/23 04:33 Anion Gap 9.0 (6-13) 01/27/23 04:33 BUN 37 mg/dL (6-20) H 01/27/23 04:33 Creatinine 0.6 mg/dL (0.4-1.0) 01/27/23 04:33 Estimated GFR (MDRD) 102 (>89) 01/27/23 04:33 Glucose 209 mg/dL (70-100) H 01/27/23 04:33 POC Whole Bld Glucose 197 mg/dL (70 - 100) H 01/27/23 07:23 Estimat Average Glucose 128 mg/dL (70-100) H 01/24/23 04:35 Hemoglobin A1c % 6.1 % (4.27-6.07) H 01/24/23 04:35 Calcium 8.5 mg/dL (8.5-10.3) 01/27/23 04:33 Magnesium 2.6 mg/dL (1.7-2.8) 01/25/23 04:50 Total Bilirubin 0.9 mg/dL (0.2-1.0) 01/23/23 18:28 AST 19 IU/L (10-42) 01/23/23 18:28 ALT 27 IU/L (10-60) 01/23/23 18:28 Alkaline Phosphatase 143 IU/L (42-121) H 01/23/23 18:28 B-Natriuretic Peptide 183 pg/mL (5-100) H 01/25/23 04:50 Total Protein 7.3 g/dL (6.7-8.2) 01/23/23 18: Albumin 3.7 g/dL (3.2-5.5) 01/23/23 18: Globulin 3.6 g/dL (2.1-4.2) 01/23/23 18: Albumin/Globulin Ratio 1.0 (1.0-2.2) 01/23/23 18: Lipase 36 U/L (22-51) 01/23/23 18: Vitamin B12 456 pg/mL (180-914) 01/24/23 04:35 Folate 13.83 ng/mL (5.90 - >24.8) 01/24/23 04:35 Nasal Adenovirus (PCR) NOT DETECTED 01/23/23 19:05 Nasal B. parapertussis DNA (PCR) NOT DETECTED 01/23/23 19:05 Nasal Coronavir 229E PCR NOT DETECTED 01/23/23 19:05 Nasal Coronavir HKU1 PCR NOT DETECTED 01/23/23 19:05 Nasal Coronavir NL63 PCR NOT DETECTED 01/23/23 19:05 Nasal Coronavir OC43 PCR NOT DETECTED 01/23/23 19:05 Nasal Enterovir/Rhinovir PCR DETECTED A 01/23/23 19:05 Nasal Influenza B PCR NOT DETECTED 01/23/23 19:05 Nasal Influenza A PCR NOT DETECTED 01/23/23 19:05 Nasal Parainfluen 1 PCR NOT DETECTED 01/23/23 19:05 Nasal Parainfluen 2 PCR NOT DETECTED 01/23/23 19:05 Nasal Parainfluen 3 PCR NOT DETECTED 01/23/23 19:05 Nasal Parainfluen 4 PCR NOT DETECTED 01/23/23 19:05 Nasal RSV (PCR) NOT DETECTED 01/23/23 19:05 Nasal B.pertussis DNA PCR NOT DETECTED 01/23/23 19:05 Nasal C.pneumoniae (PCR) NOT DETECTED 01/23/23 19:05 [place] Human Metapneumo PCR NOT DETECTED 01/23/23 19:05 Nasal M.pneumoniae (PCR) NOT DETECTED 01/23/23 19:05 Nasal SARS-CoV-2 (PCR) NOT DETECTED 01/23/23 19:05 <Mago Larson - Last Filed: 01/27/23 10:48> Vital Signs: Vital Signs - 24 hr 01/25/23 01/25/23 01/25/23 20:24 21:56 23:39 Temperature 36.6 C 36.8 C Heart Rate [ 76 78 Brachial] Respiratory 20 18 Rate Blood Pressure 135/53 H 121/63 [Right Brachial artery] O2 Saturation 97 95 O2 Saturation [ With Activity] O2 Saturation [ Without Activity] If not protocol 10 10 10 : Oxygen Flow, liters/minute 01/26/23 01/26/23 01/26/23 05:00 07:57 08:10 Temperature 37.2 C 36.6 C Heart Rate [ 74 81 Brachial] Respiratory 18 16 Rate Blood Pressure 127/61 137/58 H [Right Brachial artery] O2 Saturation 95 91 L O2 Saturation [ With Activity] O2 Saturation [ Without Activity] If not protocol 10 4 4 : Oxygen Flow, liters/minute 01/26/23 01/26/23 01/26/23 11:00 11:39 12:07 Temperature 36.6 C Heart Rate [ 82 82 Brachial] Respiratory 18 Rate Blood Pressure 132/50 H 132/50 H [Right Brachial artery] O2 Saturation 88 L O2 Saturation [ 81 L With Activity] O2 Saturation [ 90 L Without Activity] If not protocol 4 : Oxygen Flow, liters/minute 01/26/23 15:30 Temperature 36.5 C Heart Rate [ 79 Brachial] Respiratory 18 Rate Blood Pressure 140/64 H [Right Brachial artery] O2 Saturation 98 O2 Saturation [ With Activity] O2 Saturation [ Without Activity] If not protocol 10 : Oxygen Flow, liters/minute Oxygen O2 Source [With Activity] Nasal cannula O2 Source [Without Activity] Nasal cannula O2 Source CPAP Oxygen Flow Rate 4 I&O (Last 24 Hrs): Intake and Output Totals x24h 01/24/23 01/25/23 01/26/23 23:59 23:59 23:59 Intake Total 2208.25 2440 710 Output Total 2100 3050 1100 Balance 108.25 -610 -390 Abdomen: Soft, Other (Obese with a pannus) Extremities: No clubbing, No edema, No tenderness/swelling - Results Results: Laboratory Results WBC 4.4 x10^3/uL (4.8-10.8) L 01/26/23 05:22 RBC 3.17 10^6/uL (4.20-5.40) L 01/26/23 05:22 Hgb 9.9 g/dL (12.0-16.0) L 01/26/23 05:22 Hct 32.2 % (37.0-47.0) L 01/26/23 05:22 MCV 101.6 fL (81.0-99.0) H 01/26/23 05:22 MCH 31.2 pg (27.0-31.0) H 01/26/23 05:22 MCHC 30.7 g/dL (32.0-36.0) L 01/26/23 05:22 RDW 13.4 % (12.0-15.0) 01/26/23 05:22 Plt Count 109 10^3/uL (130-450) L 01/26/23 05:22 MPV 12.6 fL (7.9-10.8) H 01/26/23 05:22 Neut # (Auto) Not Reportable 01/26/23 05:22 Lymph # (Auto) Not Reportable 01/26/23 05:22 [place] # (Auto) Not Reportable 01/26/23 05:22 Eos # (Auto) Not Reportable 01/26/23 05:22 Baso # (Auto) Not Reportable 01/26/23 05:22 Absolute Nucleated RBC Not Reportable 01/26/23 05:22 Total Counted 100 01/26/23 05:22 Band Neuts % (Manual) 6 % (0-10) 01/26/23 05:22 Abnorm Lymph % (Manual) 0 % 01/26/23 05:22 Metamyelocytes % 2 % (-0) H 01/26/23 05:22 Myelocytes % 1 % (-0) H 01/26/23 05:22 Nucleated RBC % Not Reportable 01/26/23 05:22 Neutrophils # (Manual) 2.6 10^3/uL (1.5-6.6) 01/26/23 05:22 Lymphocytes # (Manual) 1.2 10^3/uL (1.5-3.5) L 01/26/23 05:22 Monocytes # (Manual) 0.4 10^3/uL (0.0-1.0) 01/26/23 05:22 Eosinophils # (Manual) 0.0 10^3/uL (0-0.7) 01/26/23 05:22 Basophils # (Manual) 0.0 10^3/uL (0-0.1) 01/26/23 05:22 Differential Comment MANUAL DIFFERENTIAL 01/26/23 05:22 Manual Slide Review Indicated 01/24/23 04:35 WBC Morphology NORMAL APPEARANCE (NORMAL) 01/25/23 04:50 Platelet Estimate DECREASED (<130,000) (NORMAL) 01/26/23 05:22 Platelet Morphology NORMAL APPEARANCE (NORMAL) 01/25/23 04:50 RBC Morph Micro Appear NORMAL APPEARANCE (NORMAL) 01/26/23 05:22 PT 11.6 secs (9.9-12.6) 01/23/23 18:28 INR 1.0 (0.8-1.2) 01/23/23 18:28 Sodium 144 mmol/L (135-145) 01/26/23 05:22 Potassium 4.4 mmol/L (3.5-5.0) 01/26/23 05:22 Chloride 104 mmol/L (101-111) 01/26/23 05:22 Carbon Dioxide 30 mmol/L (21-32) 01/26/23 05:22 Anion Gap 10.0 (6-13) 01/26/23 05:22 BUN 40 mg/dL (6-20) H 01/26/23 05:22 Creatinine 0.7 mg/dL (0.4-1.0) 01/26/23 05:22 Estimated GFR (MDRD) 85 (>89) L 01/26/23 05:22 Glucose 233 mg/dL (70-100) H 01/26/23 05:22 POC Whole Bld Glucose 209 mg/dL (70 - 100) H 01/26/23 16:54 Estimat Average Glucose 128 mg/dL (70-100) H 01/24/23 04:35 Hemoglobin A1c % 6.1 % (4.27-6.07) H 01/24/23 04:35 Calcium 9.0 mg/dL (8.5-10.3) 01/26/23 05:22 Magnesium 2.6 mg/dL (1.7-2.8) 01/25/23 04:50 Total Bilirubin 0.9 mg/dL (0.2-1.0) 01/23/23 18:28 AST 19 IU/L (10-42) 01/23/23 18:28 ALT 27 IU/L (10-60) 01/23/23 18:28 Alkaline Phosphatase 143 IU/L (42-121) H 01/23/23 18:28 B-Natriuretic Peptide 183 pg/mL (5-100) H 01/25/23 04:50 Total Protein 7.3 g/dL (6.7-8.2) 01/23/23 18:28 Albumin 3.7 g/dL (3.2-5.5) 01/23/23 18:28 Globulin 3.6 g/dL (2.1-4.2) 01/23/23 18:28 Albumin/Globulin Ratio 1.0 (1.0-2.2) 01/23/23 18:28 Lipase 36 U/L (22-51) 01/23/23 18:28 Vitamin B12 456 pg/mL (180-914) 01/24/23 04:35 Folate 13.83 ng/mL (5.90 - >24.8) 01/24/23 04:35 Nasal Adenovirus (PCR) NOT DETECTED 01/23/23 19:05 Nasal B. parapertussis DNA (PCR) NOT DETECTED 01/23/23 19:05 Nasal Coronavir 229E PCR NOT DETECTED 01/23/23 19:05 Nasal Coronavir HKU1 PCR NOT DETECTED 01/23/23 19:05 Nasal Coronavir NL63 PCR NOT DETECTED 01/23/23 19:05 Nasal Coronavir OC43 PCR NOT DETECTED 01/23/23 19:05 Nasal Enterovir/Rhinovir PCR DETECTED A 01/23/23 19:05 Nasal Influenza B PCR NOT DETECTED 01/23/23 19:05 Nasal Influenza A PCR NOT DETECTED 01/23/23 19:05 Nasal Parainfluen 1 PCR NOT DETECTED 01/23/23 19:05 Nasal Parainfluen 2 PCR NOT DETECTED 01/23/23 19:05 Nasal Parainfluen 3 PCR NOT DETECTED 01/23/23 19:05 Nasal Parainfluen 4 PCR NOT DETECTED 01/23/23 19:05 Nasal RSV (PCR) NOT DETECTED 01/23/23 19:05 Nasal B.pertussis DNA PCR NOT DETECTED 01/23/23 19:05 Nasal C.pneumoniae (PCR) NOT DETECTED 01/23/23 19:05 [place] Human Metapneumo PCR NOT DETECTED 01/23/23 19:05 Nasal M.pneumoniae (PCR) NOT DETECTED 01/23/23 19:05 Nasal SARS-CoV-2 (PCR) NOT DETECTED 01/23/23 19:05 <Erika Jalloh - Last Filed: 01/30/23 10:54> ABX Reporting Has patient been on IV antibiotics over the past 48 hours?: Yes <Mago Larson - Last Filed: 01/27/23 10:48>
[2023-01-26] MEDS: cefTRIAXone 2 GM in SODIUM CHLORIDE 0.9% MINIBAG 100 ML IV SCH (18:58)
[2023-01-26] MEDS: ATORVASTATIN 40 MG TABLET PO SCH (21:24)
[2023-01-26] MEDS: DULoxetine 30 MG CAPSULE PO SCH (21:24)
[2023-01-27] MEDS: guaiFENesin/CODEINE 5 ML UDC PO PRN ×2 (01:18→10:58)
[2023-01-27 04:55] LABS: BASOPHILS % (AUTO) 0.5 %; HCT - HEMATOCRIT 33.7 % (37.0-47.0); HGB - HEMOGLOBIN 10.2 g/dL (12.0-16.0); MEAN CORPUSCULAR HEMOGLOBIN 31.2 pg (27.0-31.0); MEAN CORPUSCULAR HGB CONC 30.3 g/dL (32.0-36.0); MEAN CORPUSCULAR VOLUME 103.1 fL (81.0-99.0); MEAN PLATELET VOLUME 12.6 fL (7.9-10.8); MONOCYTES % (AUTO) 6.4 %; NEUTROPHILS % (AUTO) 66.7 %; PLT - PLATELET COUNT 125 10^3/uL (130-450); RED BLOOD COUNT 3.27 10^6/uL (4.20-5.40); RED CELL DISTRIBUTION WIDTH 13.2 % (12.0-15.0); WHITE BLOOD COUNT 6.1 x10^3/uL (4.8-10.8)
[2023-01-27 05:07] LABS: CALCIUM 8.5 mg/dL (8.5-10.3); CREATININE 0.6 mg/dL (0.4-1.0); POTASSIUM 4.9 mmol/L (3.5-5.0)
[2023-01-27 05:26] LABS: ABNORMAL LYMPHS % (MANUAL) 0 %
[2023-01-27 05:28] LABS: BAND NEUTROPHILS % (MANUAL) 5 %; DIFFERENTIAL COMMENT MANUAL DIFFERENTIAL; LYMPHOCYTES # (MANUAL) 1.2 10^3/uL (1.5-3.5); LYMPHOCYTES % (MANUAL) 19 %; METAMYELOCYTES % (MANUAL) 3 %; MONOCYTES # (MANUAL) 0.5 10^3/uL (0.0-1.0); MYELOCYTES % (MANUAL) 2 %; NEUTROPHILS # (MANUAL) 4.1 10^3/uL (1.5-6.6); PLATELET ESTIMATE, MANUAL DECREASED (<130,000) (NORMAL); RBC MORPHOLOGY (MULTIPLE) NORMAL APPEARANCE (NORMAL)
[2023-01-27] MEDS: GABAPENTIN 300 MG CAPSULE PO SCH ×2 (05:35→14:07)
[2023-01-27] MEDS: SILDENAFIL CITRATE 20 MG PO SCH ×2 (05:36→14:07)
[2023-01-27] MEDS: methylPREDNISolone SUCCINATE 40 MG/ML VIAL IVP SCH ×2 (05:37→14:06)
--- NOTE | 2023-01-27 07:52 | PROVIDER PROGRESS NOTE ---
Subjective - Prog Note Date Prog Note Date: 01/27/23 Prog Note Time: 07:49 - Subjective Pt reports feeling: Improved Objective - Vital Signs/Intake & Output Vital Signs: Vital Signs x48h Temp Pulse Resp BP Pulse Ox O2 Flow Rate 01/27/23 07:33 4 01/27/23 07:28 36.9 C 74 20 131/67 H 98 10 01/27/23 04:47 36.6 C 80 18 141/59 H 93 10 01/26/23 23:52 36.8 C 85 18 145/64 H 94 10 Intake & Output: Intake & Output 01/24/23 01/25/23 01/26/23 01/27/23 23:59 23:59 23:59 23:59 Intake Total 2208.25 2440 1310 Output Total 2100 3050 1700 650 Balance 108.25 -610 -390 -650 - Lab Results Fish Bones: 01/27/23 04:33 01/27/23 04:33 Other Labs: Lab Results x24hrs 01/27/23 01/27/23 01/27/23 Range/Units 07:23 04:33 04:33 WBC 6.1 (4.8-10.8) x10^3/uL RBC 3.27 L (4.20-5.40) 10^6/uL Hgb 10.2 L (12.0-16.0) g/dL Hct 33.7 L (37.0-47.0) % MCV 103.1 H (81.0-99.0) fL MCH 31.2 H (27.0-31.0) pg MCHC 30.3 L (32.0-36.0) g/dL RDW 13.2 (12.0-15.0) % Plt Count 125 L (130-450) 10^3/uL MPV 12.6 H (7.9-10.8) fL Neut # (Auto) Not Reportable Lymph # (Auto) Not Reportable Carlisle # (Auto) Not Reportable Eos # (Auto) Not Reportable Baso # (Auto) Not Reportable Absolute Nucleated RBC Not Reportable Total Counted 100 Band Neuts % (Manual) 5 (0 - 10) % Abnorm Lymph % (Manual) 0 % Metamyelocytes % 3 H ( - 0) % Myelocytes % 2 H ( - 0) % Nucleated RBC % Not Reportable Neutrophils # (Manual) 4.1 (1.5-6.6) 10^3/uL Lymphocytes # (Manual) 1.2 L (1.5-3.5) 10^3/uL Monocytes # (Manual) 0.5 (0.0-1.0) 10^3/uL Eosinophils # (Manual) 0.0 (0-0.7) 10^3/uL Basophils # (Manual) 0.0 (0-0.1) 10^3/uL Differential Comment MANUAL DIFFERENTIAL Platelet Estimate DECREASED (<130,000) (NORMAL) RBC Morph Micro Appear NORMAL APPEARANCE (NORMAL) Sodium 139 (135-145) mmol/L Potassium 4.9 (3.5-5.0) mmol/L Chloride 103 (101-111) mmol/L Carbon Dioxide 27 (21-32) mmol/L Anion Gap 9.0 (6-13) BUN 37 H (6-20) mg/dL Creatinine 0.6 (0.4-1.0) mg/dL Estimated GFR (MDRD) 102 (>89) Glucose 209 H (70-100) mg/dL POC Whole Bld Glucose 197 H (70 - 100) mg/dL Calcium 8.5 (8.5-10.3) mg/dL 01/26/23 01/26/23 01/26/23 Range/Units 21:08 16:54 11:40 WBC (4.8-10.8) x10^3/uL RBC (4.20-5.40) 10^6/uL Hgb (12.0-16.0) g/dL Hct (37.0-47.0) % MCV (81.0-99.0) fL MCH (27.0-31.0) pg MCHC (32.0-36.0) g/dL RDW (12.0-15.0) % Plt Count (130-450) 10^3/uL MPV (7.9-10.8) fL Neut # (Auto) Lymph # (Auto) Carlisle # (Auto) Eos # (Auto) Baso # (Auto) Absolute Nucleated RBC Total Counted Band Neuts % (Manual) (0 - 10) % Abnorm Lymph % (Manual) % Metamyelocytes % ( - 0) % Myelocytes % ( - 0) % Nucleated RBC % Neutrophils # (Manual) (1.5-6.6) 10^3/uL Lymphocytes # (Manual) (1.5-3.5) 10^3/uL Monocytes # (Manual) (0.0-1.0) 10^3/uL Eosinophils # (Manual) (0-0.7) 10^3/uL Basophils # (Manual) (0-0.1) 10^3/uL Differential Comment Platelet Estimate (NORMAL) RBC Morph Micro Appear (NORMAL) Sodium (135-145) mmol/L Potassium (3.5-5.0) mmol/L Chloride (101-111) mmol/L Carbon Dioxide (21-32) mmol/L Anion Gap (6-13) BUN (6-20) mg/dL Creatinine (0.4-1.0) mg/dL Estimated GFR (MDRD) (>89) Glucose (70-100) mg/dL POC Whole Bld Glucose 232 H 209 H 276 H (70 - 100) mg/dL Calcium (8.5-10.3) mg/dL 01/26/23 Range/Units 07:49 WBC (4.8-10.8) x10^3/uL RBC (4.20-5.40) 10^6/uL Hgb (12.0-16.0) g/dL Hct (37.0-47.0) % MCV (81.0-99.0) fL MCH (27.0-31.0) pg MCHC (32.0-36.0) g/dL RDW (12.0-15.0) % Plt Count (130-450) 10^3/uL MPV (7.9-10.8) fL Neut # (Auto) Lymph # (Auto) Carlisle # (Auto) Eos # (Auto) Baso # (Auto) Absolute Nucleated RBC Total Counted Band Neuts % (Manual) (0 - 10) % Abnorm Lymph % (Manual) % Metamyelocytes % ( - 0) % Myelocytes % ( - 0) % Nucleated RBC % Neutrophils # (Manual) (1.5-6.6) 10^3/uL Lymphocytes # (Manual) (1.5-3.5) 10^3/uL Monocytes # (Manual) (0.0-1.0) 10^3/uL Eosinophils # (Manual) (0-0.7) 10^3/uL Basophils # (Manual) (0-0.1) 10^3/uL Differential Comment Platelet Estimate (NORMAL) RBC Morph Micro Appear (NORMAL) Sodium (135-145) mmol/L Potassium (3.5-5.0) mmol/L Chloride (101-111) mmol/L Carbon Dioxide (21-32) mmol/L Anion Gap (6-13) BUN (6-20) mg/dL Creatinine (0.4-1.0) mg/dL Estimated GFR (MDRD) (>89) Glucose (70-100) mg/dL POC Whole Bld Glucose 215 H (70 - 100) mg/dL Calcium (8.5-10.3) mg/dL Assessment/Plan - Problem List (1) Acute on chronic respiratory failure with hypoxia Impression: Assessment/Plan: The cause appears to be pneumonia on top of previously needing supplemental oxygen due to pulm hypertension. Current sat on 4L is 98% Plan: Continue with supplemental O2 at 4L, target saturations are 90% and above Continue to treat the underlying pneumonia (2) Community Acquired Pneumonia Her sputum culture is growing 3 bacteria: gram-positive cocci, gram pos bacilli and gram-negative bacilli growing. Report states normal respiratory aaron. Blood cultures were negative. Today is day 4 of ceftriazone. She completed her 3 day course of Zithromax. Plan: Continue with IV ceftriaxone and IV Zithromax. We will change her Robitussin-DM to Robitussin-AC for cough suppression and also begin Mucinex oral 600 twice daily for better pulmonary toilet Continue with supplemental O2 I updated the daughter at bedside of patient yesterday. I asked if the daughter 's house (where the patient is staying) is sanitary and the daughter admitted that the house is old, was built in the 1940s and also had water leaks and that some of the carpets are still stained. I recommend more cleanly conditions (3) Rhinovirus infection Plan: Continue with respiratory/droplet isolation (4) Pulmonary HTN She was already on Sildenafil and another med and on home O2 3L. She is still about to see a Youth Minister (in her home town in [place]) for completing the W/U, she told me. Plan: We will continue with both of her medications Continue with supplemental O2 Cont DuoNebs for her mild wheezing that is heard Continue with IV steroids 3 times daily (5) MANISHA on CPAP Her CPAP bleeds in 4L O2 normally, at baseline Plan: Continue with her home BiPAP use (6) Acute Renal Failure This was most likely pre-renal. All labs were reviewed. She presented with a creat of 2.2; pt has labs from 10/2022 with her which showed she had normal creat. Yesterday, her creat was 1.7 and today creat has improved to 0.9. BUN improved but still elevated at 37. Plan: Cont IVF and will decrease rate and stop ivf probably tomorrow. Cont to hold home medications: Valsartan/HCTZ, Diclofenac, Lasix Avoid nephrotoxins (7) Hypokalemia Adm K was 2.6 most likely due to loop diuretic use. Today was normal at 4.9 Plan: Cont to monitor and supplement as needed. (8) Thrombocytopenia All labs were reviewed. Adm Plt were 90 and today 109; improving Possibly d/t viral infection Plan: White antiplatelet agents Follow CBC daily (9) Anemia, macrocytic Adm Hgb was 11, MCV 101.4. We checked B12/Folate and they were normal. (10) HTN Her home medications were Diltiazem, Amlodipine, Cardizem (she is possibly on 2 Ca-channel blockers d/t her Pulmonary HTN), Valsartan/HCTZ and Lasix. We are not giveing home medications Valsartan/HCTZ, Lasix d/t ARF Plan: We will add back her usual blood pressure meds, when BP necessitates and when creat normalizes. 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
[2023-01-27] MEDS: INSULIN LISPRO 300 UNIT/3 ML PEN SUBQ SCH ×2 (08:02→11:45)
[2023-01-27] MEDS: CITALOPRAM HYDROBROMIDE 20 MG TABLET PO SCH (08:40)
[2023-01-27] MEDS: CHOLECALCIFEROL 25 MCG TABLET PO SCH (08:40)
[2023-01-27] MEDS: POTASSIUM CHLORIDE 20 MEQ TABLET PO SCH (08:41)
[2023-01-27] MEDS: guaiFENesin 600 MG TABLET PO SCH (08:41)
[2023-01-27] MEDS: DOCUSATE SODIUM 250 MG CAPSULE PO SCH (08:42)
[2023-01-27] MEDS: polyethylene glycoL 3350 17 GM PACKET PO SCH (08:42)
[2023-01-27] MEDS: SENNA 8.6 MG TABLET PO SCH (08:43)
[2023-01-27] MEDS: amLODIPine 5 MG TABLET PO SCH (08:43)
[2023-01-27] MEDS: MACITENTAN 10 MG PO SCH (08:45)
[2023-01-27] MEDS: INSULIN GLARGINE-YFGN 300 UNIT/3 ML PEN SUBQ SCH (08:46)
[2023-01-27] MEDS: SODIUM CHLORIDE FLUSH 0.9% 10 ML SYRINGE IVP SCH (08:47)
--- NOTE | 2023-01-27 11:30 | Discharge Plan ---
Discharge Plan Problem Reviewed?: Yes Disposition: Home, Self Care Condition: Stable Prescriptions: methylPREDNISolone [Medrol Dose Pack] 1 each PO .PACKAGEINSTRUCTIONS 6 Days #1 each guaiFENesin [Mucinex] 600 mg PO BID #14 tab Diet: Diabetic Activity Restrictions: Activity as Tolerated Shower Restrictions: No Driving Restrictions: No Health Concerns: You were hospitalized because of respiratory distress, low oxygen levels and we found you to have a pneumonia and a Rhinovirus infection. You completed full courses of 2 IV antibiotics for the pneumonia. Your oxygen settings needed to be increased and you are on steroids and medicines to open your airway and clear the secretions. You are being discharged home today with a prescription for Mucinex to continue clearing your phlegm, and a prescription called Medrol Dosepak to help keep your airways open and prevent wheezing. All new prescriptions were electronically sent to the [facility] pharmacy in [place]. You were tested to see if your oxygen settings need to be different and they should be set at 2L/min at rest and increased to 4L/min with activity. When you take your airflight, follow the instructions for that airline, regarding your oxygen setting in flight. Please resume all your other pre-Hospital medications that you took. Plan of Treatment: As above. Care Goals: Improvement in symptoms and stabilization are the goals. Assessment: The patient understands and is agreeable with the plan. Additional Instructions or Follow Up instructions: If you have new or worsening symptoms (before taking your flight back to [place]), please be seen at a Walk-In Clinic or come to the ER. No Smoking: If you smoke, Please STOP! Call for help.
[2023-01-27] MEDS: diltiaZEM CD 180 MG CAPSULE PO SCH (11:43)
[2023-01-27 12:45] VITALS: BP 130/61
[2023-01-27] MEDS: cefTRIAXone 2 GM in SODIUM CHLORIDE 0.9% MINIBAG 100 ML IV SCH (13:28)
[2023-01-27] MEDS: SODIUM CHLORIDE FLUSH 0.9% 10 ML SYRINGE IVP PRN (13:28)
--- NOTE | 2023-01-27 18:56 | DISCHARGE SUMMARY ---
"<Mago Larson - Last Filed: 01/28/23 18:50> Discharge Summary Admit Date: 01/23/23 Discharge Date: 01/27/23 Discharging Provider: Dr. Erika Jalloh Primary Care Provider: Out of state PCP ([place]) Condition at Discharge: Stable Discharge Disposition: 01 Home, Self Care - HPI History of Present Illness: 62 yo F with PMH of Pulmonary HTN on Sildenafil and home O2 3L NC (recent dx), MANISHA on CPAP with 4L O2, HTN, Fibromyalgia, chemotherapy-induced neuropathy s/p NHL/in remission x 14 years, Prediabetes, Depression/Anxiety, Recent HZV outbreak, s/p TKR in 10/2022, and L kidney tumor S/P partial nephrectomy presented to the ER with c/o 5 day h/o Shortness of breath and cough. Pt traveled to [place] from [place] 10 days ago to help her daughter with her 3 yo grandson while her daughter's is deployed in reserves. Pt's grandson had URI symptoms last week; he was diagnosed with HMPV. Pt has been sleeping with her grandson. She began to have similar symptoms 5 days ago with cough, fatigue, mylagias. +Decreased PO intake. She then began to F/C with Tmax 103.3F. +sputum: green/brown. She then began to have wheezing and increased Shortness of breath. Her SpO2 are usually low 90s, and her SpO2 were running in the mid-80s. She tried her nebs. She increased her home O2 to 4L NC. She thought something was wrong with her portable O2 d/t SOB and called the grader marker to trouble-shoot it, but could not find anything wrong. She increased her CPAP O2 to 5L. She then went to the Urgent Care clinic yesterday; Provider recommended that she go to the ER. Her symptoms worsened today, so she called EMS. She is supposed to return to [place] in about 4 days. EMS gave pt 125 mg of Solu-Medrol IV and DuoNebs. In the ER, SpO2 88-90% on 4L NC O2, Hgb 11, MCV 101.4, Plt 90, Na 133, K 2.6, Glc 181, BNP 115, BC pending, Resp panel pending. CXR not yet available for viewing; report not available: shows RLL infiltrate per ER Provider Pt was given Lasix 40mg IV, Rocephin/Azithro IV in the ER. - HOSPITAL COURSE Hospital Course: (1) Acute on chronic respiratory failure with hypoxia The cause appeared to be pneumonia on top of previously needing supplemental oxygen due to pulmonary hypertension. We treated her with supplemental O2, with target saturations at 90% and above. She required 10 L for the first 3 days of her stay. Then, she was able to start titrating down to 4L. On the day of discharge, she had an oximetry walk test. When she was at rest on 2L (which is her baseline setting), her O2 sat was 89%. On 2L with ambulation, her O2 sat dropped to 85%. With 3L, her sat increased to 87%. Then, at 4L, her sat was 90%. Therefore I am sending her home on 2L of oxygen at rest and 4L during am bulation. She plans to fly home via [employer] in 1 week and she is familiar with the flight oxygen guidelines. She will take a pulse oximeter with her and adjust oxygen settings as needed. (2) Community Acquired Pneumonia I empirically treated her with IV ceftriaxone (4 days) and IV Zithromax (3 days). Her sputum culture grew 3 bacteria: gram-positive cocci, gram pos bacilli and gram-negative bacilli, which ended up being normal oral aaron. I also gave her Robitussin-AC for cough suppression and Mucinex oral 600 twice daily for better pulmonary toilet. I sent an e-prescription for mucinex oral 600 mg bid. I asked if the daughter's house (where the patient is staying) is sanitary and the daughter admitted that the house is old, was built in the 1940s, has water leaks, and that some of the carpets are still stained. I recommend more cleanly conditions. The patient plans to stay with her daughter for 1 week before flying home to [place]. (3) Rhinovirus infection I recommend respiratory/droplet isolation until symptom resolution. (4) Pulmonary HTN She was already on Sildenafil and Macitentan and on home O2 (between 2-4L). I continued both of these medications during her stay as well as DuoNebs for her mild wheezing. I also treated her with IV Solu-Medrol 3 times daily during her stay here and I sent an e-prescription for a Medrol dose pack to taper her down. She has an appointment with End Frazer in February (in [place]) for completing the workup to find a potential cause. Echo performed on 01/24 showed: normal LV size and EF 55-60%, grade III diastolic dysfunction present. RV enlarged, but normal RV function. LA and RA enlarged. Mild mitral regurgitation and moderate tricuspid regurgitation. PA pressure 57 mmHg (mild pulmonary hypertension) (5) MANISHA on CPAP Her CPAP bleeds in 4L O2 normally at baseline. She should continue with her home BiPAP use. I instructed her daughter to check her oxygen at night and increase the oxygen flow as needed for a target saturation of 90%. (6) Paroxysmal Ventricular She had a brief episode of Paroxysmal supraventricular tachycardia on day of discharge. This was likely due to her underlying lung disease, as it is very common in patients with chronic lung disease. No further workup was performed. (7) Acute Renal Failure This was most likely pre-renal. She presented with a creatinine of 2.2, which I was able to compare with labs from 10/2022 which showed a normal creatinine. By discharge, her creatinine had returned to normal (0.6). Her BUN was also elevated at admission (54). By discharge, it had decreased to 37. Because of this, I did not give her home medications: Valsartan/HCTZ, Diclofenac, Lasix. Instead, I gave her IV fluids and avoided nephrotoxic medications. (8) Hypokalemia On admission, her potassium was 2.6, probably due to loop diuretic use. I held her diuretics during her stay and supplemented her with potassium. (9) Thrombocytopenia On admission, platelets were 90 on day of discharge was 125. This was likely due to her viral infection and improved with every day of her stay. (10) Anemia, macrocytic Reviewing her labs, her hemoglobin was 11, MCV 101.4. We checked B12/Folate and they were normal. (11) HTN Her home medications were Amlodipine, Cardizem (she is possibly on 2 Ca-channel blockers d/t her Pulmonary HTN), Valsartan/HCTZ and Lasix. On day of discharge, her bp was 130/61. We did not give home medications Valsartan/HCTZ and Lasix d/t ARF. She has a cardiology follow up in February. (12) Prediabetes We checked her Hgba1c and it came back at 6.1. Her glucose was expected to run high during her stay due to steroid use. (13) Morbid obesity BMI 45-49.9 This makes her care overall more difficult (14) Fibromyalgia Her chemotherapy-induced neuropathy is s/p NHL/in remission x 14 years. I continued her home medications: Duloxetine, Tizanidine, Gabapentin. I held her Diclofenac d/t ARF (15) Depression/Anxiety I continued her home medications: Duloxetine, Xanax, Citalopram - ALLERGIES Allergies/Adverse Reactions: Allergies Allergy/AdvReac Type Severity Reaction Status Date / Time promethazine [From Phenergan] Allergy Emesis Verified 01/23/23 18:14 - MEDICATIONS Home Medications: Ambulatory Orders Medication Instructions Recorded Confirmed Alprazolam [Xanax] 0.5 mg PO DAILY PRN 01/23/23 01/23/23 Atorvastatin Calcium 40 mg PO DAILY 01/23/23 01/23/23 Citalopram Hydrobromide 40 mg PO DAILY 01/23/23 01/23/23 [Citalopram HBr] DULoxetine [Cymbalta] 1 - 3 cap PO BID 01/23/23 01/24/[address] [Voltaren] 75 mg PO BIDWM 01/23/23 01/23/23 Furosemide [Lasix] 20 mg PO MOWEFR PRN 01/23/23 01/24/23 Gabapentin [Neurontin] 600 mg PO UD 01/23/23 01/23/23 Macitentan [Opsumit] 10 mg PO DAILY 01/23/23 01/23/23 Sildenafil Citrate [Sildenafil] 20 mg PO TID 01/23/23 01/23/23 Valsartan/Hydrochlorothiazide 1 each PO DAILY 01/23/23 01/23/23 [Diovan Hct 320-25 mg Tablet] amLODIPine [Norvasc] 5 mg PO DAILY 01/23/23 01/23/23 dilTIAZem HCL [Diltiazem 24Hr ER 180 mg PO DAILY 01/23/23 01/23/23 (Xr)] tiZANidine [Zanaflex] 4 mg PO BID PRN 01/23/23 01/23/23 guaiFENesin [Mucinex] 600 mg PO BID #14 tab 01/27/23 methylPREDNISolone [Medrol Dose 1 each PO .PACKAGEINSTRUCTIONS 6 01/27/23 Pack] Days #1 each Home Medications Other | Comments: I prescribed Mucinex 600 mg and a medrol dose pack for you to continue taking at home. - PHYSICAL EXAM AT DISCHARGE General Appearance: positive: No acute distress, Other (Using nasal cannula 2L at rest. Speaking in long sentences without getting winded) Eyes Bilateral: positive: Normal inspection Neck: positive: No JVD, Trachea midline. negative: Stiff neck Respiratory: positive: Chest non-tender, No respiratory distress, Wheezes, Rhonchi Cardiovascular: positive: Regular rate & rhythm, No murmur Skin: positive: Color nml, No rash, Warm, Dry Neurologic/Psychiatric: positive: Oriented x3, Mood/affect nml - LABS Result Diagrams: 01/27/23 04:33 01/27/23 04:33 - QUALITY (Female Hip Fx Only) Was patient sent home on osteoporosis medication?: No - FOLLOW UP Follow Up: Patient has appointments with her propeller mechanic and bee breeder in February. She plans to fly home to [place] in about 1 week. <Erika Jalloh - Last Filed: 01/28/23 18:55> Discharge Summary - HOSPITAL COURSE Hospital Course: Attestation: I attest that the patient was seen and examined by me with a separate encounter after being seen by the PA student. I reviewed the student's documentation including patient history, physical exam, laboratory, imaging, clinical assessment, and treatment plan. I have discussed the management of the patient with the student, with the patient, and there are no changes. - LABS Result Diagrams: 01/27/23 04:33 01/27/23 04:33"
== END 2023-01-27 15:01 | disposition home or self-care (01) | DRG 189 ==
LOC: ED 18:07 → MS2 20:36
PROVIDERS: ADMIT Internal Medicine; ATTEND Internal Medicine
DX: J96.91 Respiratory failure, unspecified with hypoxia (principal); J96.21 Acute and chronic respiratory failure with hypoxia; J18.9 Pneumonia, unspecified organism; J15.6 Pneumonia due to other Gram-negative bacteria; I47.1 Supraventricular tachycardia; D64.9 Anemia, unspecified; E87.1 Hypo-osmolality and hyponatremia; N17.9 Acute kidney failure, unspecified; Z68.42 Body mass index [BMI] 45.0-49.9, adult; G47.30 Sleep apnea, unspecified; Z99.81 Dependence on supplemental oxygen; B34.8 Other viral infections of unspecified site; Z20.822 Contact with and (suspected) exposure to COVID-19; I27.20 Pulmonary hypertension, unspecified; G47.33 Obstructive sleep apnea (adult) (pediatric); E87.6 Hypokalemia; D69.6 Thrombocytopenia, unspecified; D53.9 Nutritional anemia, unspecified; I10 Essential (primary) hypertension; R73.03 Prediabetes; M79.7 Fibromyalgia; E66.01 Morbid (severe) obesity due to excess calories; F32.A Depression, unspecified; F41.9 Anxiety disorder, unspecified; Z90.5 Acquired absence of kidney; Z85.72 Personal history of non-Hodgkin lymphomas; E78.5 Hyperlipidemia, unspecified; G62.2 Polyneuropathy due to other toxic agents; T45.1X5D Adverse effect of antineoplastic and immunosuppressive drugs, subsequent encounter
CPT/HCPCS: 36415; 71045; 80048; 80053; 82607; 82746; 83036; 83690; 83735; 83880; 85025; 85610; 87040; 87070; 87205; 87633; 93005; 93306; 94640; 94761; 96374; 96375; 97116; 97162; 97167; 99284; 99285; A9270; J1815; J8499; 84484